=== PATIENT | male | born 1950 | race Caucasian/White ===

== ENCOUNTER 2019-10-22 15:11 | Inpatient (IN) | payer MEDICARE ==
[~2019-10-22] VITALS: Ht 172.7 cm; Wt 116.7 kg
[2019-10-23] MEDS ORDERED: LOPERAMIDE 2 MG (IMODIUM) TABLET PO PRN (06:00)
[2019-10-23] MEDS ORDERED: ALPRAZolam 0.25 MG (XANAX) TAB PO PRN (06:00)
[2019-10-23] MEDS ORDERED: diphenhydrAMINE 25 MG TAB (BENADRYL) PO PRN (06:00)
[2019-10-23] MEDS ORDERED: LACTULOSE SYRUP 10GM/15ML (ENULOSE) 30ML UDC PO PRN (06:00)
[2019-10-23] MEDS ORDERED: CALCIUM CARBONATE 500 MG (TUMS) TAB.CHEW PO PRN (06:00)
[2019-10-23] MEDS ORDERED: ONDANSETRON 4 MG (ZOFRAN) ORAL DISSOLVE TAB PO PRN (06:00)
[2019-10-23] MEDS ORDERED: DOCUSATE SODIUM 100 MG (COLACE) CAP PO PRN (06:00)
[2019-10-23] MEDS ORDERED: BISACODYL 10 MG SUPP (DULCOLAX) PR PRN (06:00)
[2019-10-23] MEDS ORDERED: MELATONIN 3 MG TABLET PO PRN (06:00)
[2019-10-23] MEDS ORDERED: guaiFENesin/CODEINE (ROBITUSSIN AC) 10ML UDC PO PRN (06:00)
[2019-10-23] MEDS ORDERED: ACETAMINOPHEN 500 MG TAB (TYLENOL) PO PRN (06:00)
[2019-10-23] MEDS ORDERED: FLEET ENEMA ADULT 1 EA BTL PR PRN (06:00)
[2019-10-23] MEDS ORDERED: PATIENT MAY USE OWN MED,SINGLE MED PO SCH ×2 (13:15)
[2019-10-23] MEDS ORDERED: oxyCODONE/APAP 10/325MG (PERCOCET 10) TABLET PO PRN (13:15)
--- NOTE | 2019-10-23 15:13 | NUR ---
JimmieRobyn zuniga admitted to room 231-1, with an admitting diagnosis of lumbar stenosis, on 10/23/19 from [facility] in [place] via private vehicle, accompanied by per wheelchair .ROBYN ANDREA introduced to surroundings, call light, bed controls, phone, TV, temperature control, lights, meal times, smoking policy, visitor policy, side rail policy, bathrooms and showers. Patient Rights given to patient in the handbook.ROBYN ANDREA verbalizes understanding that [facility] is not responsible for the loss or damage to any personal effects or valuables that are kept in the patients possessions during their hospitalization. The Patient's Care Plans were discussed with the patient and as well as Discharge Planning. ROBYN ANDREA verbalizes understanding of Interdisciplinary Patient Education. Patient and/or family were informed about the Rapid Response Team and its purpose. Patient received Patient Rights Booklet, which includes Privacy Act Statement and Data Collection Information Summary.
[2019-10-23] MEDS ORDERED: ISOSORBIDE MONONITRATE 30 MG (IMDUR) TAB PO SCH (15:30)
--- NOTE | 2019-10-23 15:59 | PM&R Post Admission Assessment ---
PM&R HP Date of Visit: Oct 23, 2019 Time of Visit: 15:30 History of Present Illness Chief complaint: Debility following lumbar stenosis surgery with slow recovery due to chronic myasthenia gravis condition History of present illness: This is a 69-year-old white male clinic patient of Dr. Richard Guzmán of recent establishment previously Dr. Abel was his primary care provider who has a past medical history of myasthenia gravis in process of establishing with neurology, who he previously saw in [place], who presents to inpatient rehab unit in need of recovery with structured physical therapy in order to return home. He underwent an uncomplicated lumbar spine stenosis surgery by Dr. Colón on , 10/20/2019 and today he just had his DAO drain removed and his bowels are moving well and in need of aggressive therapy in order to prevent falls and return home with his . He does report acute on chronic pain. He does wear a CPAP machine for obstructive sleep apnea and he did bring that with him today. I have reviewed and reconciled all of his home medication and will restart all of them with same doses and frequencies. He is not having any nausea or vomiting and no fevers. His prior level of functioning is the use of a walker but independent with his ADLs. [facility] PCP notes Dr Richard Guzmán: Past Medical History: Arthritis low back CAD (coronary artery disease) GERD (gastroesophageal reflux disease) HTN (hypertension) Hyperlipidemia Kidney calculus MRSA (methicillin resistant staph aureus) culture positive 08/23/2017 right arm abscess Myasthenia gravis Obstructive sleep apnea C-PAP Past Surgical History HX CHOLECYSTECTOMY HX CORONARY ARTERY BYPASS GRAFT triple bypass HX EGDwith dilitation HX HEART CATHETERIZATION 2005 & one time since CABG HX HERNIA REPAIR HX KNEE REPLACEMENT Left PENIS SURGERY-Penile Implant FRAGMENT KIDNEY STONE/ ESWLLeft NV NJX DX/THER SBST EPIDURAL/SUBARACH LUMBAR/SACRAL 11/08/2018 CAUDAL EPIDURAL INJECTION performed by Abel Pulliam MD at [facility] NV REMOVAL OF HYDROCELE,TUNICA,UNILAT Bilateral 08/13/2018 HYDROCELECTOMY performed by Max Sanford MD at [facility] MAIN OR Past Wauivxf-Somovd-Hcgpdz Hx Past Med/Social Hx: Reviewed Nursing Past Med/Soc Hx, Reviewed and Corrections made Patient Social History Marrital Status: Employed/Student: retired ([place] [employer] 10 yrs before retiring) Alcohol Use: Rarely Uses Smoking Status: Never a Smoker Recent Foreign Travel: No Contact w/other who traveled: No Seasonal Allergies Seasonal Allergies: Yes Past Medical History Surgeries: Abdominal, Cardiac, CABG, Coronary Stent, Gallbladder, Orthopedic lumbar spine Dr Colón 10/20/19, hernia, penile implant Respiratory: Sleep Apnea Currently Using CPAP: Yes (.08/27) Currently Using BIPAP: No Cardiac: Coronary Artery Disease, Heart Attack (2005), High Cholesterol, Hypertension Neurological: Dementia, Neuropathy tremor, myasthenia gravis right eye Genitourinary: Benign Prostatic Hyperpl Gastrointestinal: Gastroesophageal Reflux, Chronic Diarrhea Musculoskeletal: Arthritis, Chronic Back Pain, Spasms Psychosocial: Depression PM&R Allergy/Meds/Data Review Allergies Coded Allergies: codeine (Verified Allergy, Unknown, 10/23/19) Current Medications Current Medications Reviewed Review of Systems Constitutional: see HPI, malaise, weakness EENTM: no symptoms reported Respiratory: no symptoms reported Cardiovascular: no symptoms reported Gastrointestinal: no symptoms reported Genitourinary: no symptoms reported Musculoskeletal: back pain, muscle pain, muscle stiffness Skin: no symptoms reported Psychiatric/Neurological: No Symptoms Reported All Other Systems Reviewed Negative Unless Noted: Yes Physical Exam Physical Exam Vital Signs Capillary Refill : Height, Weight, BMI Height: '" Weight: lbs. oz. kg; BMI Method: General Appearance: No Apparent Distress, WD/WN, Chronically ill, Obese Eyes: Bilateral Eye Normal Inspection, Bilateral Eye PERRL HEENT: PERRL/EOMI, Normal ENT Inspection, Pharynx Normal Neck: Full Range of Motion, Normal Inspection, Non Tender, Supple, Carotid Bruit Respiratory: Chest Non Tender, Lungs Clear, Normal Breath Sounds, No Accessory Muscle Use, No Respiratory Distress Cardiovascular: Regular Rate, Rhythm, No Edema, No Gallop, No JVD, No Murmur, Normal Peripheral Pulses Gastrointestinal: Normal Bowel Sounds, No Organomegaly, No Pulsatile Mass, Non Tender, Soft Back: Decreased Range of Motion, Muscle Spasm, Vertebral Tenderness Extremity: Normal Capillary Refill, Normal Inspection, Normal Range of Motion, Non Tender, No Calf Tenderness, No Pedal Edema Neurologic/Psychiatric: Alert, Oriented x3, No Motor/Sensory Deficits, Normal Mood/Affect, hospital pharmacist II-XII Norm as Tested, Abnormal Gait, Depressed Affect, Disoriented (poor recall), Motor Weakness (legs 4/5) Skin: Normal Color, Warm/Dry Lymphatic: No Adenopathy PM&R Medical Assessment & Plan REHAB/MEDICAL ASSESSMENT AND PLAN: REHAB IMPAIRMENT GROUP: Lumbar stenosis surgery with MG ETIOLOGIC DIAGNOSIS: Lumbar stenosis surgery with MG The comorbidities that impact the patients function and/or functional outcome by: obesity, dementia, CAD, poor functioning capacity at baseline, KWAN REHAB PLAN: The patient is being admitted to our comprehensive inpatient rehabilitation facility and can tolerate the intensity of service consisting of at least: 180 minutes of therapy a day, 5 out of 7 days a week Rehab treatment will consist of: PT OT will focus on fall prevention and increasing stamina along with increasing ADL independence with energy conservation education The patient/family has a good understanding of our discharge process and will benefit from an interdisciplinary inpatient rehabilitation program. The patient has potential to make improvement and is in need of at least two of the following multidisciplinary therapies including but not limited to physical, occupational, speech, and prosthetics and orthotics. Additionally the patient will need services from respiratory, nutritional services, wound care, psychology, etc. (Customize this to each patient). Given the patients complex condition and risk of further medical complications, rehabilitation services cannot be safely or effectively provided at a lower level of care such as a [facility]. BARRIERS TO DISCHARGE: Cognitive deficit ESTIMATED LOS: 7 days DISPOSITION: Home RELEVANT CHANGES SINCE PREADMISSION SCREENING: I have compared the patients medical and functional status at the time of the preadmission screening and there are: no changes PROGNOSIS: Good REHABILITATION GOALS: 1. PT OT will focus on fall prevention and increasing stamina along with increasing ADL independence with energy conservation education All the above goals were reviewed with the patient and he/she is in agreement. By signing this document, I acknowledge that I have personally performed a full physical examination on this patient within 24 hours of admission to this inpatient rehabilitation facility and have determined the patient to be able to tolerate the above course of treatment at an intensive level for a reasonable period of time. I will be completing a detailed individualized Plan of Care for this patient by day #4 of the patients stay based upon the Preadmission Screen, the Post-Admission Evaluation, and the therapy evaluations. Admission Dx/Comorbidities: (1) Lumbar stenosis ICD Codes: M48.061 - Spinal stenosis, lumbar region without neurogenic claudication (2) Myasthenia gravis ICD Codes: G70.00 - Myasthenia gravis without (acute) exacerbation (3) KWAN on CPAP ICD Codes: G47.33 - Obstructive sleep apnea (adult) (pediatric); Z99.89 - Dependence on other enabling machines and devices (4) CAD (coronary artery disease) ICD Codes: I25.10 - Atherosclerotic heart disease of [place] coronary artery without angina pectoris (5) S/P CABG x 3 ICD Codes: Z95.1 - Presence of aortocoronary bypass graft (6) Hypertension ICD Codes: I10 - Essential (primary) hypertension (7) Hyperlipemia ICD Codes: E78.5 - Hyperlipidemia, unspecified (8) Obesity ICD Codes: E66.9 - Obesity, unspecified (9) GERD with esophagitis ICD Codes: K21.0 - Gastro-esophageal reflux disease with esophagitis (10) Dementia ICD Codes: F03.90 - Unspecified dementia without behavioral disturbance (11) History of penile implant ICD Codes: Z96.0 - Presence of urogenital implants (12) Renal lithiasis ICD Codes: N20.0 - Calculus of kidney Assessment/Plan Assessment and Plan Assess & Plan/Chief Complaint Assessment: Status post lumbar stenosis surgery POD # 3 Myasthenia gravis Slow recovery KWAN on CPAP Obesity GERD Hypertension Hyperlipidemia CAD Previous CABG 3 vessels Plan: Inpatient rehab protocol Pain control Home meds Fall risk Bowel regimen Monitor closely No Lovenox or aspirin for 7 days MICHEL LOPEZ DO Oct 23, 2019 15:59
[2019-10-23] MEDS: DOCUSATE SODIUM 100 MG (COLACE) CAP PO SCH ×2 (16:44→20:03)
[2019-10-23] MEDS: polyethylene glycoL POWDER 17 GM (MIRALAX) PACK PO SCH ×2 (16:45→20:06)
[2019-10-23 16:46] VITALS: BP 138/77
[2019-10-23] MEDS: HYDROcodone/APAP 7.5 MG/325 MG (LORTAB, LORCET PLUS) TABLET PO PRN (17:09)
[2019-10-23] MEDS: GABAPENTIN 600 MG (NEURONTIN) TAB PO SCH ×2 (17:14→20:03)
[2019-10-23] MEDS: PYRIDOSTIGMINE 60 MG TABLET PO SCH ×2 (17:16→20:04)
[2019-10-23] MEDS: MYCOPHENOLATE 500 MG TABLET PO SCH (17:18)
[2019-10-23 18:48] VITALS: BP 138/77
[2019-10-23] MEDS: SENNA W/DOCUSATE (SENOKOT S) TABLET PO SCH (20:02)
[2019-10-23] MEDS: FENOFIBRATE 134 MG (LOFIBRA) CAPSULE PO SCH (20:03)
[2019-10-23] MEDS: PRIMIDONE 50 MG TAB (MYSOLINE) PO SCH (20:03)
[2019-10-23] MEDS: ISOSORBIDE MONONITRATE 30 MG (IMDUR) TAB PO SCH (20:03)
[2019-10-23] MEDS: DONEPEZIL 10 MG (ARICEPT) TAB PO SCH (20:04)
[2019-10-24] MEDS: HYDROcodone/APAP 7.5 MG/325 MG (LORTAB, LORCET PLUS) TABLET PO PRN ×2 (00:27→06:24)
[2019-10-24 05:30] VITALS: BP 124/64
[2019-10-24 05:31] LABS: BASOPHILS % (AUTO) 1 % (0-10); EOSINOPHILS # (AUTO) 0.2 10^3/uL (0.0-0.3); EOSINOPHILS % (AUTO) 3 % (0-10); HEMATOCRIT 34 % (40-54); HEMOGLOBIN 11.1 G/DL (13.3-17.7); LYMPHOCYTES # (AUTO) 1.3 X 10^3 (1.0-4.0); LYMPHOCYTES % (AUTO) 15 % (12-44); MEAN CORPUSCULAR HEMOGLOBIN 28 PG (25-34); MEAN CORPUSCULAR HGB CONC 33 G/DL (32-36); MEAN CORPUSCULAR VOLUME 87 FL (80-99); MEAN PLATELET VOLUME 9.3 FL (7.4-10.4); MONOCYTES # (AUTO) 1.1 X 10^3 (0.0-1.0); MONOCYTES % (AUTO) 13 % (0-12); NEUTROPHILS # (AUTO) 5.9 X 10^3 (1.8-7.8); NEUTROPHILS % (AUTO) 69 % (42-75); PLATELET COUNT 191 10^3/uL (130-400); RED CELL DISTRIBUTION WIDTH 13.1 % (10.0-14.5); WHITE BLOOD COUNT 8.4 10^3/uL (4.3-11.0)
[2019-10-24 05:47] LABS: ALBUMIN 3.6 GM/DL (3.2-4.5); CHLORIDE 101 MMOL/L (98-107); POTASSIUM 3.9 MMOL/L (3.6-5.0); SODIUM 136 MMOL/L (135-145)
[2019-10-24 05:48] LABS: CALCIUM 8.7 MG/DL (8.5-10.1)
[2019-10-24 05:49] LABS: GLUCOSE 125 MG/DL (70-105)
[2019-10-24 05:50] LABS: TOTAL PROTEIN 6.3 GM/DL (6.4-8.2)
[2019-10-24 05:51] LABS: BILIRUBIN,TOTAL 0.3 MG/DL (0.1-1.0); CARBON DIOXIDE 26 MMOL/L (21-32)
[2019-10-24 05:53] LABS: ALKALINE PHOSPHATASE 43 U/L (40-136); CREATININE SERUM 1.03 MG/DL (0.60-1.30); GFR ESTIMATED > 60
[2019-10-24 05:54] LABS: BUN/CREATININE RATIO 14
[2019-10-24 05:56] LABS: ALANINE AMINOTRANSFERASE 16 U/L (0-55)
[2019-10-24] MEDS: MYCOPHENOLATE 500 MG TABLET PO SCH ×2 (06:23→14:20)
[2019-10-24] MEDS: MULTIVIT W/MINERALS TAB (THERAGRAN M) PO SCH (06:23)
[2019-10-24] MEDS: PYRIDOSTIGMINE 60 MG TABLET PO SCH ×3 (06:27→21:25)
[2019-10-24] MEDS: VITAMIN D3 125 MCG (5,000 UNITS) CAPSULE PO SCH (08:12)
[2019-10-24] MEDS: PANTOPRAZOLE 40 MG (PROTONIX) TAB PO SCH (08:13)
[2019-10-24] MEDS: ASCORBIC ACID (VIT C) 500 MG TABLET PO SCH (08:13)
[2019-10-24] MEDS: LOSARTAN 100 MG (COZAAR) TABLET PO SCH (08:13)
[2019-10-24] MEDS: LORATADINE (CLARITIN) 10 MG TAB PO SCH (08:13)
[2019-10-24] MEDS: GABAPENTIN 600 MG (NEURONTIN) TAB PO SCH ×3 (08:13→21:26)
[2019-10-24] MEDS: SENNA W/DOCUSATE (SENOKOT S) TABLET PO SCH ×2 (08:14→21:26)
[2019-10-24] MEDS: DOCUSATE SODIUM 100 MG (COLACE) CAP PO SCH ×2 (08:14→21:26)
[2019-10-24] MEDS: polyethylene glycoL POWDER 17 GM (MIRALAX) PACK PO SCH ×2 (08:15→21:25)
[2019-10-24] MEDS: FLUTICASONE NASAL SPRAY (FLONASE) 16 GM BTL NS SCH ×2 (08:15→22:01)
[2019-10-24] MEDS: ATENOLOL 50 MG (TENORMIN) TAB PO SCH (08:18)
[2019-10-24 08:19] VITALS: BP 128/65
[2019-10-24] MEDS ORDERED: ISOSORBIDE MONONITRATE 30 MG (IMDUR) TAB PO SCH (09:00)
--- NOTE | 2019-10-24 10:29 | PM&R Progress Note ---
Subjective HPI/CC On Admission Date Seen by Provider: Oct 24, 2019 Time Seen by Provider: 10:20 Subjective/Events-last exam Pain issues are being addressed will add back on to Percocet Still has Hydrocodone as needed but he takes that at home Bowels will be monitored closely for narcotic bowel issue Continue the rest of his home medication No falls Didn't sleep well last light due to the pain Conferred with RN Reviewed therapy notes Checked meds and labs Review of Systems Musculoskeletal: back pain Objective Exam Vital Signs Vital Signs Date Time Temp Pulse Resp B/P (MAP) Pulse Ox O2 Delivery O2 Flow Rate FiO2 10/24/19 20:50 53 18 108/50 (69) 92 Room Air 110/50 (70) 10/24/19 16:00 36.4 Capillary Refill : Less Than 3 Seconds General Appearance: No Apparent Distress, WD/WN, Chronically ill, Obese HEENT: PERRL/EOMI, Normal ENT Inspection, Pharynx Normal Neck: Full Range of Motion, Normal Inspection, Non Tender, Supple, Carotid Bruit Respiratory: Chest Non Tender, Lungs Clear, Normal Breath Sounds, No Accessory Muscle Use, No Respiratory Distress Cardiovascular: Regular Rate, Rhythm, No Edema, No Gallop, No JVD, No Murmur, Normal Peripheral Pulses Gastrointestinal: Normal Bowel Sounds, No Organomegaly, No Pulsatile Mass, Non Tender, Soft Back: Decreased Range of Motion, Muscle Spasm, Vertebral Tenderness Extremity: Normal Capillary Refill, Normal Inspection, Normal Range of Motion, Non Tender, No Calf Tenderness, No Pedal Edema Neurologic/Psychiatric: Alert, Oriented x3, No Motor/Sensory Deficits, Normal Mood/Affect, train reservation clerk II-XII Norm as Tested, Abnormal Gait, Depressed Affect, Disoriented (poor recall), Motor Weakness (legs 4/5) Skin: Normal Color, Warm/Dry Lymphatic: No Adenopathy Results/Procedures Lab Laboratory Tests 10/24/19 05:11 Patient resulted labs reviewed. FIM Transfers Therapy Code Descriptions/Definitions Functional [place] Measure: 0=Not Assessed/NA 4=Minimal Assistance 1=Total Assistance 5=Supervision or Setup 2=Maximal Assistance 6=Modified [place] 3=Moderate Assistance 7=Complete IndependenceSCALE: Activities may be completed with or without assistive devices. 8-Bqtacharhu-egsbrwx completes the activity by him/herself with no assistance from a helper. 5-Set-up or Clean-up Assistance-helper sets up or cleans up; patient completes activity. [place] assists only prior to or following the activity. 4-Supervision or Touching Assistance-helper provides verbal cues and/or touching/steadying and/or contact guard assistance as patient completes activity. Assistance may be provided throughout the activity or intermittently. 3-Partial/Moderate Assistance-helper does LESS THAN HALF the effort. [place] lifts, holds or supports trunk or limbs, but provides less than half the effort. 2-Substantial/Maximal Assistance-helper does MORE THAN HALF the effort. [place] lifts or holds trunk or limbs and provides more than half the effort. 7-Zroiqsydm-nudveb does ALL the effort. Patient does none of the effort to complete the activity. Or, the assistance of 2 or more helpers is required for the patient to complete the activity. If activity was not attempted, code reason: 7-Patient Refused. 9-Not Applicable-not attempted and the patient did not perform the activity before the current illness, exacerbation or injury. 10-Not Attempted due to Environmental Limitations-(lack of equipment, weather restraints, etc.). 88-Not Attempted due to Medical Conditions or Safety Concerns. Assessment/Plan Assessment and Plan Assess & Plan/Chief Complaint Assessment: Status post lumbar stenosis surgery POD # 4 Myasthenia gravis Slow recovery KWAN on CPAP Obesity GERD Hypertension Hyperlipidemia CAD Previous CABG 3 vessels Severe pain Plan: Inpatient rehab protocol Pain control Home meds Fall risk Bowel regimen Monitor closely No Lovenox or aspirin for 7 days Increase pain medication (1) Lumbar stenosis (2) Myasthenia gravis (3) KWAN on CPAP (4) CAD (coronary artery disease) (5) S/P CABG x 3 (6) Hypertension (7) Hyperlipemia (8) Obesity (9) GERD with esophagitis (10) Dementia (11) History of penile implant (12) Renal lithiasis MICHEL LOPEZ DO Oct 24, 2019 10:29
[2019-10-24] MEDS: oxyCODONE/APAP 10/325MG (PERCOCET 10) TABLET PO PRN ×3 (10:39→19:37)
--- NOTE | 2019-10-24 11:48 | Physical Therapy Evaluation ---
PT Evaluation-General Medical Diagnosis Admission Date Oct 23, 2019 at 15:12 Medical Diagnosis: lumbar stenosis surgery Onset Date: Oct 21, 2019 Therapy Diagnosis Therapy Diagnosis: impaired mobility, strength, endurance Precautions Precautions/Isolations: Fall Prevention, Standard Precautions Referral Physician: Gosia Jasso DO Reason for Referral: Evaluation/Treatment Medical History Pertinent Medical History: CAD, GERD, HTN Additional Medical History hyperlipidemia, hx of myasthenia gravis Reviewed History: Yes Social History Home: Single Level Current Living Status: Spouse Entry Into Home: Level Entry Prior Prior Level of Function SCALE: Activities may be completed with or without assistive devices. 9-Mhawyezkmh-xzwrugw completes the activity by him/herself with no assistance from a helper. 5-Set-up or Clean-up Assistance-helper sets up or cleans up; patient completes activity. [place] assists only prior to or following the activity. 4-Supervision or Touching Assistance-helper provides verbal cues and/or touching/steadying and/or contact guard assistance as patient completes activity. Assistance may be provided throughout the activity or intermittently. 3-Partial/Moderate Assistance-helper does LESS THAN HALF the effort. [place] lifts, holds or supports trunk or limbs, but provides less than half the effort. 2-Substantial/Maximal Assistance-helper does MORE THAN HALF the effort. [place] lifts or holds trunk or limbs and provides more than half the effort. 2-Qrmkyqulw-bcsapu does ALL the effort. Patient does none of the effort to complete the activity. Or, the assistance of 2 or more helpers is required for the patient to complete the activity. If activity was not attempted, code reason: 7-Patient Refused. 9-Not Applicable-not attempted and the patient did not perform the activity before the current illness, exacerbation or injury. 10-Not Attempted due to Environmental Limitations-(lack of equipment, weather restraints, etc.). 88-Not Attempted due to Medical Conditions or Safety Concerns. Bed Mobility: 6 Transfers (B,C,W/C): 6 Gait: 6 Indoor Mobility (Ambulation): Independent Patient states that previously he started using a 4-wheeled walker. PT Evaluation-Current Subjective Patient in recliner pre tx, agrees to PT, has 7/10 pain in low back. Pt/Family Goals to be independent at home Objective Patient Orientation: Person, Place, Situation back brace ROM/Strength ROM Lower Extremities WNL Strength Lower Extremities 5/5 gross BLE except for hip flexion which is 3/5 bilaterally Sensory Vision: Functional Hearing: Functional Sensation Right Lower Extremit: Impaired Sensation Left Lower Extremity: Impaired Sensation Lower Extremities Patient has decreased light touch sensation in his feet bilaterally, he says he has neuropathy. Transfers Roll Left to Right (QC): 6 Sit to Lying (QC): 6 Lying to Sitting/Side of Bed(Q: 6 Sit to Stand (QC): 4 Chair/Fdp-ho-Hurdm Xfer(QC): 4 Toilet Transfer (QC): 4 Car Transfer (QC): 4 Patient performs bed mobility with independence, supine <->sit with independence, sit <-> stand with SBA, transfers with SBA, car transfer SBA. Patient performs a log roll well with supine <-> sit. Occasional cues for safety or positioning. Gait Does the Patient Walk?: Yes Mode of Locomotion: Walk Anticipated Mode of Locomotion: Walk Walk 10 feet (QC): 4 Walk 50 ft with 2 Turns(QC): 4 Walk 150 ft (QC): 88 Walking 10ft/uneven surface-QC: 4 Distance: 120', 60'x2 Gait Assistive Device: Walker 4 Wheeled Comments/Gait Description Patient can ambulate 120' with a 4-wheeled walker with SBA (including 50' with at least 2 turns of 90 degrees but needs CGA to ambulate over an uneven surface). He ambulates slow but steady, wide IVA. Slumped posture. Wheelchair Training Does the Pt Use a Wheelchair?: No Wheel 50 ft with 2 turns (QC): 9 Wheel 150 ft (QC): 9 Stairs #of Steps: 1 1 Step (curb) (QC): 4 4 Steps (QC): 88 12 Steps (QC): 88 Walking Assistive Device: Walker Patient can go up and down 1 step using a 4-wheeled walker with CGA. Cues for foot placement. Balance Sitting Static: Normal Sitting Dynamic: Normal Standing Static: Good Standing Dynamic: Good Picking up an Object (QC): 88 Treatment NuStep level 4 for 10 min (patient states it was hurting his legs, we may not do this again). Assessment/Needs Patient has impaired mobility, strength, endurance. He needs assist with don/doff brace. Most mobility is SBA. Rehab Potential: Fair PT Short Term Goals Short Term Goals Time Frame: Oct 31, 2019 Roll Left & Right: 6 Sit to lyin Lying to sitting on side of be: 6 Sit to stand: 5 Chair/pix-pw-jqvau transfer: 5 Walk 10 feet: 5 Walk 50 feet with two turns: 5 Walk 150 feet: 5 PT Dough Panner Goals Dough Panner Goals PT Dough Panner Goals Time Frame: Nov 14, 2019 Roll Left & Right (QC): 6 Sit to Lying (QC): 6 Lying-Sitting on Side/Bed(QC): 6 Sit to Stand (QC): 6 Chair/Tfj-ow-Giprr Xfer(QC): 6 Toilet Transfer (QC): 6 Car Transfer (QC): 6 Does the Patient Walk: Yes Walk 10 feet (QC): 6 Walk 50ft with 2 Turns (QC): 6 Walk 150 ft (QC): 6 Walking 10ft on Uneven Surface: 6 1 Step (curb) (QC): 4 4 Steps (QC): 4 12 Steps (QC): 88 Picking up an Object (QC): 88 Does the Pt use WC or Scooter?: No Wheel 50 feet with 2 turns (QC: 9 Wheel 150 feet: 9 PT Plan Problem List Problem List: Activity Tolerance, Functional Strength, Safety, Balance, Gait, Transfer, Bed Mobility, ROM Treatment/Plan Treatment Plan: Continue Plan of Care Treatment Plan: Bed Mobility, Education, Functional Activity [place], Functional Strength, Group Therapy, Gait, Safety, Therapeutic Exercise, Transfers Treatment Duration: Nov 14, 2019 Frequency: At least 5 of 7 days/Wk (IRF) Estimated Hrs Per Day: 1.5 hours per day Patient and/or Family Agrees t: Yes Safety Risks/Education Patient Education: Gait Training, Transfer Techniques, Steps, Reviewed Precautions, Correct Positioning, Reviewed Don/Doff Brace, Safety Issues Teaching Recipient: Patient Teaching Methods: Demonstration, Discussion Response to Teaching: Reinforcement Needed Discharge Recommendations Plan Patient will perform bed mobility and transfer training, balance and endurance training, functional strengthening, stair training, gait training, and education, to improve functional mobility and independence at home. Therapy Discharge Recommendati: Home & Family Equpiment Recommendations-D/C: Shower Chair, Toilet Riser Time/GCodes Time In: 1100 Time Out: 1200 Total Billed Treatment Time: 60 Total Billed Treatment 1 visit EVM 30' EX 10' GT 20' JOHNSON CRUZ PT Oct 24, 2019 11:48
[2019-10-24] MEDS ORDERED: GBPN600T PO (12:51)
[2019-10-24] MEDS ORDERED: MULT-1136 PO (12:51)
[2019-10-24] MEDS ORDERED: PANT40TA3 PO (12:51)
[2019-10-24] MEDS ORDERED: FENO160T12 PO (12:51)
[2019-10-24] MEDS ORDERED: CETI10TA21 PO (12:51)
[2019-10-24] MEDS ORDERED: PRIM50TA33 PO (12:51)
[2019-10-24] MEDS ORDERED: CHOL20002 PO (12:51)
[2019-10-24] MEDS ORDERED: ATEN50TA PO (12:51)
[2019-10-24] MEDS ORDERED: LOSA100T57 PO (12:51)
[2019-10-24] MEDS ORDERED: FLUT16SP22 NSEACH (12:51)
[2019-10-24] MEDS ORDERED: ASCO-262 PO (12:51)
[2019-10-24] MEDS ORDERED: OXYC-465 PO (12:51)
[2019-10-24] MEDS ORDERED: ISOS30TA3 PO (12:51)
[2019-10-24] MEDS ORDERED: PYRI60TA PO (12:51)
[2019-10-24] MEDS ORDERED: NYST60PO TOP (13:15)
[2019-10-24] MEDS ORDERED: DONE10TA41 PO (13:15)
[2019-10-24] MEDS ORDERED: OMEG-177 PO (13:15)
[2019-10-24] MEDS ORDERED: MYCO500T3 PO (13:15)
[2019-10-24] MEDS ORDERED: TRAZ-227 PO (13:15)
--- NOTE | 2019-10-24 13:18 | NUR ---
ENTERED THE MEDS USING THE DISCHARGE ORDERS FROM [facility]- THERE WERE SOME MAINTENANCE MEDICATIONS THAT WERE NOT LISTED ON THE DISCHARGE ORDERS (NOT ON THE CONTINUE, CHANGE OR DISCONTINUE) AND I SPOKE WITH THE PT AND HE SAID THAT YES HE WAS TAKING PRIOR TO HIS SURGERY THE MEDICATIONS ARE: TRAZODONE 100MG AND NYSTOP POWDER Addendum: 10/27/19 at 1046 by LAN BERNARD CPhT OTC MEDS: VIT C ZYRTEC VIT D MTV FISH OIL
--- NOTE | 2019-10-24 14:23 | Physical Therapy Daily Note ---
PT Daily Note-Current Subjective Patient in recliner pre tx, agrees to PT, has 6/10 back pain, nurse notified. Appearance Patient in bed post tx with nurse call, phone, tray, all needs met. Mental Status Patient Orientation: Person, Place, Situation back brace Transfers SCALE: Activities may be completed with or without assistive devices. 2-Lqsmsktuqa-gyjgyfn completes the activity by him/herself with no assistance from a helper. 5-Set-up or Clean-up Assistance-helper sets up or cleans up; patient completes activity. [place] assists only prior to or following the activity. 4-Supervision or Touching Assistance-helper provides verbal cues and/or touching/steadying and/or contact guard assistance as patient completes activity. Assistance may be provided throughout the activity or intermittently. 3-Partial/Moderate Assistance-helper does LESS THAN HALF the effort. [place] lifts, holds or supports trunk or limbs, but provides less than half the effort. 2-Substantial/Maximal Assistance-helper does MORE THAN HALF the effort. [place] lifts or holds trunk or limbs and provides more than half the effort. 0-Iqexntsty-kipvmz does ALL the effort. Patient does none of the effort to complete the activity. Or, the assistance of 2 or more helpers is required for the patient to complete the activity. If activity was not attempted, code reason: 7-Patient Refused. 9-Not Applicable-not attempted and the patient did not perform the activity before the current illness, exacerbation or injury. 10-Not Attempted due to Environmental Limitations-(lack of equipment, weather restraints, etc.). 88-Not Attempted due to Medical Conditions or Safety Concerns. Roll Left & Right (QC): 6 Sit to Lying (QC): 6 Sit to Stand (QC): 4 Chair/Nlg-yk-Xzpbe Xfer(QC): 4 Gait Training Distance: 120'x2 Walk 10 feet (QC): 4 Walk 50 ft with 2 Turns(QC): 4 Gait Persons Needed: 1 Gait Assistive Device: FWW slow but steady ambulation Exercises Standing: Hip Abduction, Heel/toe raises, Mini squats Standing Reps: 20 LAQ alternating for 5 min with 2# ankle weights Treatments bed mobility and transfers, ambulation, functional strengthening Assessment Current Status: Fair Progress improving endurance PT Short Term Goals Short Term Goals Time Frame: Oct 31, 2019 Roll Left & Right: 6 Sit to lyin Lying to sitting on side of be: 6 Sit to stand: 5 Chair/hne-wz-erlys transfer: 5 Walk 10 feet: 5 Walk 50 feet with two turns: 5 Walk 150 feet: 5 PT Internal Consultant Goals Senior Care Goals PT Senior Care Goals Time Frame: Nov 14, 2019 Roll Left & Right (QC): 6 Sit to Lying (QC): 6 Lying-Sitting on Side/Bed(QC): 6 Sit to Stand (QC): 6 Chair/Taa-ex-Adfry Xfer(QC): 6 Toilet Transfer (QC): 6 Car Transfer (QC): 6 Does the Patient Walk: Yes Walk 10 feet (QC): 6 Walk 50ft with 2 Turns (QC): 6 Walk 150 ft (QC): 6 Walking 10ft on Uneven Surface: 6 1 Step (curb) (QC): 4 4 Steps (QC): 4 12 Steps (QC): 88 Picking up an Object (QC): 88 Does the Pt use WC or Scooter?: No Wheel 50 feet with 2 turns (QC: 9 Wheel 150 feet: 9 PT Plan Problem List Problem List: Activity Tolerance, Functional Strength, Safety, Balance, Gait, Transfer, Bed Mobility, ROM Treatment/Plan Treatment Plan: Continue Plan of Care Treatment Plan: Bed Mobility, Education, Functional Activity [place], Functional Strength, Group Therapy, Gait, Safety, Therapeutic Exercise, Transfers Treatment Duration: Nov 14, 2019 Frequency: At least 5 of 7 days/Wk (IRF) Estimated Hrs Per Day: 1.5 hours per day Patient and/or Family Agrees t: Yes Safety Risks/Education Patient Education: Gait Training, Transfer Techniques, Correct Positioning, Reviewed Don/Doff Brace, Safety Issues Teaching Recipient: Patient Teaching Methods: Demonstration, Discussion Response to Teaching: Reinforcement Needed Time/GCodes Time In: 1400 Time Out: 1430 Total Billed Treatment Time: 30 Total Billed Treatment 1 visit EX 10' GT 20' JOHNSON CRUZ PT Oct 24, 2019 14:23
--- NOTE | 2019-10-24 14:54 | NUR ---
"RD ASSESSMENT PMHx: CAD; GERD; HTN; HLD; BPH; myasthenia; chronic diarrhea PT INTERACTION: Pt was awake and pleasant during nutrition assessment. Pt states current appetite is pretty good. Note avg PO intake 88% x2meal, per chart review. Pt states following a regular diet at home, and has no issues with chewing/swallowing food. Pt states no recent issues with nausea or vomiting. Pt states some recent issues with constipation and diarrhea, and that his last BM was 7/6. Pt states no recent wt changes. Note unable to determine recent wt hx, per chart review. ABNORMAL NUTRITION-RELATED LAB VALUES LOW: Pro 6.3 HIGH: glu 125 Est. kcal needs: 5538-3811 kcal | 15-18 kcal/kg Est. Pro needs: 91-114 g Pro | 0.8-1.0 g Pro/kg PES STATEMENT: Given current PO intake, no nutrition diagnosis at this time (NO-1.1) INTERVENTION: Continue with current diet order of Regular diet. Will continue to follow and reassess as pt needs, intake, and status change. MONITOR/EVALUATE: PO Intake; Plan of Care; Hydration Status; Weight Status; Lab Values Shanika Santana, MS, RD, LD"
--- NOTE | 2019-10-24 15:00 | Progress Note ---
JESÚS LUJAN MED STUDENT 10/24/19 1459: Progress Note Mr. Charanjit Schmitz is being seen due to, and has a history of myasthenia gravis in his R eye. He reports being diagnosed in 2014 after having difficulty seeing while driving at night, and noticing his R eyelid drooping. He also reports having issues with fatigue and balance, he would stumble frequently while walking. He was referred to a neurologist by an wire chief, who made the diagnosis and placed him on pyridostigmine, which improved his symptoms. After pyridostigmine stopped working he was switched to steroids, but stopped them due to adverse effects. He is currently on pyridostigmine and mycophenolate mofetil, which he reports controls his symptoms well as long as he takes them at the proper time, if he is late with a dose he may experience drooping of his R eyelid. On physical exam, EOMI/PERRLA, CN VII intact showing no weakness or asymmetry, able to turn his head and shrug shoulders against resistance with 5+ strength. 5+ muscle strength in shoulder abduction, elbow flexion/extension, wrist flexion/extension, hip flexion/extension, knee flexion/extension, ankle flexion/extension bilaterally. GOSIA LOPEZ DO 10/24/19 2201: Supervisory-Addendum Brief Verification & Attestation Participated in pt care: history, MDM, physical Personally performed: exam, history, MDM, supervision of care Care discussed with: Medical Student Procedures: n/a Results interpretation: Verified all documentation Verification and Attestation of Medical Student E/M Service A medical student performed and documented this service in my presence. I reviewed and verified all information documented by the medical student and made modifications to such information, when appropriate. I personally performed the physical exam and medical decision making. Gosia Lopez, Oct 24, 2019,22:01 JESÚS LUJAN MED STUDENT Oct 24, 2019 14:59 GOSIA LOPEZ DO Oct 24, 2019 22:01
--- NOTE | 2019-10-24 15:40 | Occupational Therapy Eval ---
OT Evaluation-General/PLF Medical Diagnosis Admission Date Oct 23, 2019 at 15:12 Medical Diagnosis: lumbar stenosis surgery Onset Date: Oct 21, 2019 Therapy Diagnosis Therapy Diagnosis: Weakness, decreased ADL skills Precautions Precautions/Isolations: Fall Prevention, Standard Precautions Weight Bear Status Back precautions and pt. to have back brace on when up OOB. Referral Physician: Gosia Jasso DO Referral Reason: Activity Tolerance, Self Care, Evaluation/Treatment, Strengthening/ROM Medical History Pertinent Medical History: Arthritis, CABG, CAD, Dementia, GERD, HTN Additional Medical History Myasthenia gravis, neuro tremor, hyperlipidemia, left knee replacement. Current History Pt. had lumbar surgery for lumbar stenosis on 10/20/19. Transferred to rehab unit for strengthening. Reviewed History: Yes Social History Home: Single Level Current Living Status: Spouse Entry Into Home: Level Entry ADL-Prior Level of Function SCALE: Activities may be completed with or without assistive devices. 6-Qksmwgqtnx-nbeukhg completes the activity by him/herself with no assistance from a helper. 5-Set-up or Clean-up Assistance-helper sets up or cleans up; patient completes activity. [place] assists only prior to or following the activity. 4-Supervision or Touching Assistance-helper provides verbal cues and/or touching/steadying and/or contact guard assistance as patient completes activity. Assistance may be provided throughout the activity or intermittently. 3-Partial/Moderate Assistance-helper does LESS THAN HALF the effort. [place] lifts, holds or supports trunk or limbs, but provides less than half the effort. 2-Substantial/Maximal Assistance-helper does MORE THAN HALF the effort. [place] lifts or holds trunk or limbs and provides more than half the effort. 4-Dcnscvzoj-fwpcki does ALL the effort. Patient does none of the effort to complete the activity. Or, the assistance of 2 or more helpers is required for the patient to complete the activity. If activity was not attempted, code reason: 7-Patient Refused. 9-Not Applicable-not attempted and the patient did not perform the activity before the current illness, exacerbation or injury. 10-Not Attempted due to Environmental Limitations-(lack of equipment, weather restraints, etc.). 88-Not Attempted due to Medical Conditions or Safety Concerns. 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 Pt. reports he is normally independent with daily skills, but occasionally seeks assistance for LE dressing from spouse. Self Care: Needed Some Help Functional Cognition: Independent DME/Equipment: Bath Chair, Shower DME/Equipment Comments Pt. has 4 wheeled walker that he has been using since early September. Drive Self: Yes OT Current Status Subjective Pt. reports 7/10 back pain. Nursing administers pain medication. Mental Status/Objective Patient Orientation: Person, Place, Time, Situation Current Upper Extremity ROM Pt. has limited ROM in right shoulder due to arthritis. Pt. is able to flex shoulder to approximately 60 degrees. Left- WFL Upper Extremity Strength NT due to back safety. ADL-Treatment Eating (QC): 6 (Reported by pt.) Oral Hygiene (QC): 4 (Pt. already completed per pt.) Shower/Bathe Self (QC): 4 (SBA/CGA in shower. Pt. able to bring bilateral feet up to him to wash, but this was difficult. Pt. able to wash dustin area in stance, but had difficulty as well as he strains to do so.) Upper Body Dressing (QC): 4 Lower Body Dressing (QC): 3 (Mod assist overall to don underwear and pants over feet. Pt. able to don over hips once he was standing.) On/Off Footwear (QC): 2 Toileting Hygiene (QC): 4 (CGA in stance to urinate.) Other Treatments Pt. agrees to shower this a.m. Pt. requires CGA/SBA with all transfers. Pt. requires min assist overall to don back brace. Pt. educated to not hold his breathe during movement. Pt. up in chair after treatment with all needs met. Education OT Patient Education: Correct positioning, Modified ADL techniques, Progress toward Goal/Update tx plan, Purpose of tx/functional activities, Reviewed precautions, Rehab process, Transfer techniques Teaching Recipient: Patient Teaching Methods: Demonstration, Discussion Response to Teaching: Verbalize Understanding, Return Demonstration OT Short Term Goals Short Term Goals Time Frame: Oct 31, 2019 Eatin Oral hygiene: 6 Toileting hygiene: 5 Shower/bathe self: 4 Upper body dressin Lower body dressin Putting on/taking off footwear: 4 OT Longterm Goals Medical Technician Goals Time Frame: Nov 07, 2019 Eating (QC): 6 Oral Hygiene (QC): 6 Toileting Hygiene (QC): 6 Shower/Bathe Self (QC): 5 Upper Body Dressing (QC): 6 Lower Body Dressing (QC): 6 On/Off Footwear (QC): 6 Additional Goals: 1-Demonstrate ADL Tasks, 2-Verbalize Understanding, 3- ImproveStrength/[place] 1=Demonstrate adherence to instructed precautions during ADL tasks. 2=Patient will verbalize/demonstrate understanding of assistive devices/modifications for ADL. 3=Patient will improve strength/tolerance for activity to enable patient to perform ADL's. OT Education/Plan Problem List/Assessment Assessment: Decreased Activ Tolerance, Dependent Transfers, Impaired Bed Mobility, Impaired Funct Balance, Impaired I ADL's, Impaired Self-Care Skills, Restricted Funct UE ROM Discharge Recommendations Plan/Recommendations: Continue POC Therapy Discharge Recommendati: Home & Family, Post Acute OT Equpiment Recommendations-D/C: Hip Kit Patient/Family Goals To return home with spouse assist. Treatment Plan/Plan of Care Treatment,Training & Education: Yes Patient would benefit from OT for education, treatment and training to promote independence in ADL's, mobility, safety and/or upper extremity function for ADL's. Plan of Care: ADL Retraining, Functional Mobility, Group Exercise/Act as Ind, UE Funct Exercise/Act Treatment Duration: Nov 07, 2019 Frequency: At least 5 of 7 days/Wk (IRF) Estimated Hrs Per Day: 1.5 hours per day Agreement: Yes Rehab Potential: Good Time/GCodes Start Time: 10:00 Stop Time: 11:00 Total Time Billed (hr/min): 60 Billed Treatment Time 1, EVM x 15minutes, ADL x 45minutes INDER BARROW OT Oct 24, 2019 15:40
--- NOTE | 2019-10-24 15:52 | Occupational Ther Daily Note ---
OT Current Status-Daily Note Subjective Pt. reports pain in back but does not state pain level. It is not time for pain medication yet. Pt. repositioned to assist with comfort. Appearance Pt. is up in chair. Requests to use toilet. Mental Status/Objective Patient Orientation: Person, Place, Time, Situation ADL-Treatment Therapy Code Descriptions/Definitions Functional [place] Measure: 0=Not Assessed/NA 4=Minimal Assistance 1=Total Assistance 5=Supervision or Setup 2=Maximal Assistance 6=Modified [place] 3=Moderate Assistance 7=Complete IndependenceSCALE: Activities may be completed with or without assistive devices. 9-Ifmkuuzrqi-yjpbzxz completes the activity by him/herself with no assistance from a helper. 5-Set-up or Clean-up Assistance-helper sets up or cleans up; patient completes activity. [place] assists only prior to or following the activity. 4-Supervision or Touching Assistance-helper provides verbal cues and/or touching/steadying and/or contact guard assistance as patient completes activity. Assistance may be provided throughout the activity or intermittently. 3-Partial/Moderate Assistance-helper does LESS THAN HALF the effort. [place] lifts, holds or supports trunk or limbs, but provides less than half the effort. 2-Substantial/Maximal Assistance-helper does MORE THAN HALF the effort. [place] lifts or holds trunk or limbs and provides more than half the effort. 3-Fdcvdaipt-awnfat does ALL the effort. Patient does none of the effort to complete the activity. Or, the assistance of 2 or more helpers is required for the patient to complete the activity. If activity was not attempted, code reason: 7-Patient Refused. 9-Not Applicable-not attempted and the patient did not perform the activity before the current illness, exacerbation or injury. 10-Not Attempted due to Environmental Limitations-(lack of equipment, weather restraints, etc.). 88-Not Attempted due to Medical Conditions or Safety Concerns. On/Off Footwear: 3 (Mod assist overall with use of AE.) Toileting Hygiene (QC): 4 (SBA) Toilet Transfer (QC): 3 (Min assist) Pt. donned back brace with min assist and stood at walker with min assist to ambulate to toilet. Declines toilet riser. Transferred to toilet with min assist. Pt. able to clean self after BM. Stood with SBA and ambulated to sink to wash hands. Pt. ambulated back to chair. OT issued adaptive equipment for dressing/bathing. Pt. educated in equipment uses, and practiced doffing/donning slipper socks with AE. Pt. able to complete with mod assist overall. Educated for back safety provided. All needs met up in chair. Education OT Patient Education: Correct positioning, Modified ADL techniques, Progress toward Goal/Update tx plan, Purpose of tx/functional activities, Reviewed precautions, Rehab process, Transfer techniques Teaching Recipient: Patient Teaching Methods: Demonstration, Discussion Response to Teaching: Verbalize Understanding, Return Demonstration OT Short Term Goals Short Term Goals Time Frame: Oct 31, 2019 Eatin Oral hygiene: 6 Toileting hygiene: 5 Shower/bathe self: 4 Upper body dressin Lower body dressin Putting on/taking off footwear: 4 OT Machine Puller And Laster Goals [facility] Goals Time Frame: Nov 07, 2019 Eating (QC): 6 Oral Hygiene (QC): 6 Toileting Hygiene (QC): 6 Shower/Bathe Self (QC): 5 Upper Body Dressing (QC): 6 Lower Body Dressing (QC): 6 On/Off Footwear (QC): 6 Additional Goals: 1-Demonstrate ADL Tasks, 2-Verbalize Understanding, 3- ImproveStrength/[place] 1=Demonstrate adherence to instructed precautions during ADL tasks. 2=Patient will verbalize/demonstrate understanding of assistive devices/modifications for ADL. 3=Patient will improve strength/tolerance for activity to enable patient to perform ADL's. OT Education/Plan Problem List/Assessment Assessment: Decreased Activ Tolerance, Dependent Transfers, Impaired I ADL's, Impaired Self-Care Skills Discharge Recommendations Plan/Recommendations: Continue POC Therapy Discharge Recommendati: Home & Family, Post Acute OT Equpiment Recommendations-D/C: Hip Kit Treatment Plan/Plan of Care Treatment,Training & Education: Yes Patient would benefit from OT for education, treatment and training to promote independence in ADL's, mobility, safety and/or upper extremity function for ADL's. Plan of Care: ADL Retraining, Functional Mobility, Group Exercise/Act as Ind, UE Funct Exercise/Act Treatment Duration: Nov 07, 2019 Frequency: At least 5 of 7 days/Wk (IRF) Estimated Hrs Per Day: 1.5 hours per day Agreement: Yes Rehab Potential: Good Time/GCodes Start Time: 13:30 Stop Time: 14:00 Total Time Billed (hr/min): 30 Billed Treatment Time 1, ADL x 2 INDER BARROW OT Oct 24, 2019 15:52
[2019-10-24 16:00] VITALS: BP 127/67
--- NOTE | 2019-10-24 17:42 | NUR ---
DRESSING CHANGE TO BACK INCISION. INCISION IS WELL APPROXIMATED WITH SHAY INTACT. CLEANSED WITH ALCOHOL PADS. COVERED WITH [place] DRESSING. SCANT DRAINAGE NOTED.
[2019-10-24 20:50] VITALS: BP_SYST 108; BP_SYST 110; BP_DIAS 50
[2019-10-24] MEDS: ISOSORBIDE MONONITRATE 30 MG (IMDUR) TAB PO SCH (21:00)
[2019-10-24] MEDS: FENOFIBRATE 134 MG (LOFIBRA) CAPSULE PO SCH (21:25)
[2019-10-24] MEDS: DONEPEZIL 10 MG (ARICEPT) TAB PO SCH (21:26)
[2019-10-24] MEDS: PRIMIDONE 50 MG TAB (MYSOLINE) PO SCH (21:28)
--- NOTE | 2019-10-24 21:30 | Individualized Plan of Care ---
Individualized Plan of Care Rehab Nursing IPOC Order Admission Date Oct 23, 2019 at 15:12 Current Orders Orders Admission Order(Inpt,Obs,Sdc) (10/23/19 05:53) Vital Signs: Per Unit Policy ( 08,16,00 (10/23/19 05:53) Romain Mckenna 09,21 (10/23/19 05:53) Sequential Compression Device Q4H (10/23/19 05:53) Medical Staff Assistant-Inpt Rehab Con (10/23/19 05:53) Rehab Nursing Orders-Ipoc (10/23/19 05:53) Physical Therapy Rehab Orders (10/23/19 05:53) Occupational Therapy Rehab Ord (10/23/19 05:53) Speech Therapy Rehab Orders (10/23/19 05:53) Cbc With Automated Diff (10/24/19 06:00) Comprehensive Metabolic Panel (10/24/19 06:00) General/Regular (10/23/19 Breakfast) Intake & Output 06,14,22 (10/23/19 05:53) Precautions (Aru) (10/23/19 05:53) Weekly Weight WEEK (10/23/19 05:53) Rehab-Intensity Of Therapy (10/23/19 05:53) Initiate Admission Nursing Pro .admission (10/23/19 05:53) Acetaminophen Tablet (Tylenol Tablet) (10/23/19 06:00) Alprazolam Tablet (Xanax Tablet) (10/23/19 06:00) Calcium Carbonate Chew Tablet (Antacid C (10/23/19 06:00) Diphenhydramine Tablet (Benadryl Tablet) (10/23/19 06:00) Docusate Sodium Capsule (Colace Capsule) (10/23/19 09:00) Docusate Sodium Capsule (Colace Capsule) (10/23/19 06:00) Bisacodyl Suppository (Dulcolax Supposit (10/23/19 06:00) Lactulose Oral Solution (Enulose Oral So (10/23/19 06:00) Na Phos/Na Biphos Enema (Fleet Enema Rufino (10/23/19 06:00) Guaifenesin/Codeine Syrup (Robitussin Ac (10/23/19 06:00) Loperamide Tablet (Imodium Tablet) (10/23/19 06:00) Melatonin Tablet (Melatonin Tablet) (10/23/19 06:00) Polyethylene Glycol Powder Pkt (Miralax (10/23/19 09:00) Ondansetron Oral Dissolve Tab (Zofran (10/23/19 06:00) Senna S Tablet (Senokot S Tablet) (10/23/19 21:00) Code/Resuscitation (10/23/19 05:53) Atenolol Tablet (Tenormin Tablet) (10/24/19 09:00) Donepezil Tablet (Aricept Tablet) (10/23/19 21:00) Fenofibrate,Micronized Capsule (Lofibra (10/23/19 21:00) Fluticasone Nasal [place] (Flonase Nasal S (10/24/19 09:00) Gabapentin Capsule/Tablet (Neurontin Cap (10/23/19 17:00) Hydrocodone/Apap 7.5/325 Tab (Lortab 7. (10/23/19 13:15) Isosorbide Mononitrate Tablet (Imdur Tab (10/24/19 09:00) Losartan Tablet (Cozaar Tablet) (10/24/19 09:00) Therapeutic Multivitamin Tab (Vitamins, (10/24/19 07:00) Patient May Use Own Med,Single (Patient (10/23/19 13:15) Oxycodone/Acet 10/325mg Tablet (Percocet (10/23/19 13:15) Pantoprazole Tablet (Protonix Tablet) (10/24/19 09:00) Primidone Tablet (Mysoline Tablet) (10/23/19 21:00) Patient May Use Own Med,Single (Patient (10/23/19 13:15) Ascorbic Acid Tablet (Vitamin C Tablet) (10/24/19 08:00) Cholecalciferol Capsule/Tablet (Vitamin (10/24/19 09:00) Loratadine Tablet (Claritin Tablet) (10/24/19 09:00) Admission Arrival Bed Request (10/23/19 15:13) Isosorbide Mononitrate Tablet (Imdur Tab (10/23/19 15:30) Patient May Use Own Med,Single (Patient (10/23/19 17:00) Patient May Use Own Med,Single (Patient (10/23/19 17:00) Vte Contraindication (10/23/19 16:28) Isosorbide Mononitrate Tablet (Imdur Tab (10/23/19 21:00) Nursing Communication (Order) (10/23/19 18:22) Ambulate 08,12,20 (10/23/19 18:54) Sequential Compression Device Q4H (10/23/19 18:54) Dvt/Vte Risk - Notifiy Physici Q4H (10/23/19 18:54) Oxycodone/Acet 10/325mg Tablet (Percocet (10/24/19 10:00) Patient Visit (10/24/19 ) Pt Eval Moderate Complexity (10/24/19 ) Exercise Therap, Ea 15 Min (10/24/19 ) Gait Training, Ea 15 Min (10/24/19 ) Rehab Nursing Orders: Ongoing Assess. of Function Status, Bladder Management, Bladder Scan, Bladder Training, Bowel Management, Bowel Training, Disease Management & Educaiton, DVT Prophylaxis, Fall Prevention, Fluid/Electrolyte/Nutrition Mgmt, Infection Prevention, Medication Management & Education, Management of Risks & Complications, Management of Skin Intergrity, Nutrition Management, Pain Management, Patient/Family Support, Safety Management, Swallow Precautions Intensity of Therapy to be met Patient to be seen: Min.3h per day/5 of 7d PT IPOC Problem List: Activity Tolerance, Functional Strength, Safety, Balance, Gait, Transfer, Bed Mobility, ROM Treatment Plan: Continue Plan of Care Bed Mobility, Education, Functional Activity [place], Functional Strength, Group Therapy, Gait, Safety, Therapeutic Exercise, Transfers Treatment Duration: Nov 14, 2019 Frequency: At least 5 of 7 days/Wk (IRF) Estimated Hrs Per Day: 1.5 hours per day OT IPOC Problems: Decreased Activ Tolerance, Dependent Transfers, Impaired I ADL's, Impaired Self-Care Skills OT Treatment, Training and Edu: Yes Plan of Care: ADL Retraining, Functional Mobility, Group Exercise/Act as Ind, UE Funct Exercise/Act Treatment Duration: Nov 07, 2019 Frequency: At least 5 of 7 days/Wk (IRF) Estimated Hrs Per Day: 1.[address] IPOC Speech Therapy Treatment Plan: Continue Plan of Care Treatment Duration: Oct 24, 2019 Frequency: Modified Program (IRF) Estimated Hrs Per Day: Other Medical Staff Assistant/Case Mgmt Medical Staff Assistant/Case Managemen: Discharge Planning Dietitian/Oracle Database Developer Dietitian/Oracle Database Developer to monitor nutritional status and make changes and/or recommendations as needed and work with speech pathology on dietary upgrades as the occur. Physician IPOC Medical Issues being managed closely and that require the 24 hour availability of a physician: Recent extensive spine surgery with dementia and MG in need of close monitoring to prevent decompensation Medical Issues: Bowel/Bladder Function, DVT Prophylaxis, Falls Precautions, Fluid/Electrolyte/Nutrition Balance, Infection Protection, Pain Management Brief Synthesis of Preadmission Screen, Post-Admission Evaluation, and Therapy Evaluations: PT OT will focus on regaining ADL independence and gain strength in order to return home to and ST will focus on cognition. Medical Prognosis: Good Anticipated Length of Stay: 7 days MICHEL LOPEZ DO Oct 24, 2019 21:30
[2019-10-25] MEDS: oxyCODONE/APAP 10/325MG (PERCOCET 10) TABLET PO PRN ×2 (01:03→08:11)
[2019-10-25] MEDS: MYCOPHENOLATE 500 MG TABLET PO SCH (05:31)
[2019-10-25] MEDS: MULTIVIT W/MINERALS TAB (THERAGRAN M) PO SCH (05:31)
[2019-10-25 06:15] VITALS: BP 157/67
[2019-10-25] MEDS: VITAMIN D3 125 MCG (5,000 UNITS) CAPSULE PO SCH (08:59)
[2019-10-25] MEDS: SENNA W/DOCUSATE (SENOKOT S) TABLET PO SCH ×2 (08:59→20:52)
[2019-10-25] MEDS: LOSARTAN 100 MG (COZAAR) TABLET PO SCH (08:59)
--- NOTE | 2019-10-25 08:59 | Physical Therapy Daily Note ---
PT Daily Note-Current Subjective Patient in bed pre tx, agrees reluctantly to PT but initially refuses to participate until he has had pain meds, has 6-7/10 pain in back, nurse notified and he got pain meds. Appearance Patient in recliner post tx with nurse call, phone, tray, all needs met. Mental Status Patient Orientation: Person, Place, Situation back brace Transfers SCALE: Activities may be completed with or without assistive devices. 3-Hwszsxycck-xjtwfod completes the activity by him/herself with no assistance from a helper. 5-Set-up or Clean-up Assistance-helper sets up or cleans up; patient completes activity. [place] assists only prior to or following the activity. 4-Supervision or Touching Assistance-helper provides verbal cues and/or touching/steadying and/or contact guard assistance as patient completes activity. Assistance may be provided throughout the activity or intermittently. 3-Partial/Moderate Assistance-helper does LESS THAN HALF the effort. [place] lifts, holds or supports trunk or limbs, but provides less than half the effort. 2-Substantial/Maximal Assistance-helper does MORE THAN HALF the effort. [place] lifts or holds trunk or limbs and provides more than half the effort. 8-Xwcpvuuvs-hnrqjw does ALL the effort. Patient does none of the effort to complete the activity. Or, the assistance of 2 or more helpers is required for the patient to complete the activity. If activity was not attempted, code reason: 7-Patient Refused. 9-Not Applicable-not attempted and the patient did not perform the activity before the current illness, exacerbation or injury. 10-Not Attempted due to Environmental Limitations-(lack of equipment, weather restraints, etc.). 88-Not Attempted due to Medical Conditions or Safety Concerns. Roll Left & Right (QC): 6 Lying to Sitting/Side of Bed(Q: 6 Sit to Stand (QC): 4 Chair/Mvo-mw-Lwnzc Xfer(QC): 4 Gait Training Distance: 150', 120', 150' Walk 10 feet (QC): 4 Walk 50 ft with 2 Turns(QC): 4 Walk 150 ft (QC): 4 Gait Persons Needed: 1 Gait Assistive Device: Walker 4 Wheeled slow but steady ambulation, antalgic, slumped posture Exercises Seated Therapy Exercises: Ankle pumps, Hip flexion, Hip abd/add (with pillow and RTB) Seated Reps: 20 Standing: Hip Abduction, Hamstring curls, Heel/toe raises, Mini squats, Step- ups (x10 each side) Standing Reps: 15 LAQ alternating for 5 min with 2# ankle weights Treatments bed mobility and transfers, ambulation, functional strengthening Assessment Current Status: Fair Progress improving endurance PT Short Term Goals Short Term Goals Time Frame: Oct 31, 2019 Roll Left & Right: 6 Sit to lyin Lying to sitting on side of be: 6 Sit to stand: 5 Chair/zae-fw-zhlnx transfer: 5 Walk 10 feet: 5 Walk 50 feet with two turns: 5 Walk 150 feet: 5 PT Intermediate Goals Game Programmer Goals PT Intermediate Goals Time Frame: Nov 14, 2019 Roll Left & Right (QC): 6 Sit to Lying (QC): 6 Lying-Sitting on Side/Bed(QC): 6 Sit to Stand (QC): 6 Chair/Vni-dq-Demlu Xfer(QC): 6 Toilet Transfer (QC): 6 Car Transfer (QC): 6 Does the Patient Walk: Yes Walk 10 feet (QC): 6 Walk 50ft with 2 Turns (QC): 6 Walk 150 ft (QC): 6 Walking 10ft on Uneven Surface: 6 1 Step (curb) (QC): 4 4 Steps (QC): 4 12 Steps (QC): 88 Picking up an Object (QC): 88 Does the Pt use WC or Scooter?: No Wheel 50 feet with 2 turns (QC: 9 Wheel 150 feet: 9 PT Plan Problem List Problem List: Activity Tolerance, Functional Strength, Safety, Balance, Gait, Transfer, Bed Mobility, ROM Treatment/Plan Treatment Plan: Continue Plan of Care Treatment Plan: Bed Mobility, Education, Functional Activity [place], Functional Strength, Group Therapy, Gait, Safety, Therapeutic Exercise, Transfers Treatment Duration: Nov 14, 2019 Frequency: At least 5 of 7 days/Wk (IRF) Estimated Hrs Per Day: 1.5 hours per day Patient and/or Family Agrees t: Yes Safety Risks/Education Patient Education: Gait Training, Transfer Techniques, Correct Positioning, Reviewed Don/Doff Brace, Safety Issues Teaching Recipient: Patient Teaching Methods: Demonstration, Discussion Response to Teaching: Reinforcement Needed Time/GCodes Time In: 0800 Time Out: 0900 Total Billed Treatment Time: 60 Total Billed Treatment 1 visit GT 30' EX 30' KRTEK,JOHNSON PT Oct 25, 2019 08:59
[2019-10-25] MEDS: DOCUSATE SODIUM 100 MG (COLACE) CAP PO SCH ×2 (09:00→20:52)
[2019-10-25] MEDS: LORATADINE (CLARITIN) 10 MG TAB PO SCH (09:03)
[2019-10-25] MEDS: GABAPENTIN 600 MG (NEURONTIN) TAB PO SCH ×3 (09:03→20:46)
[2019-10-25] MEDS: ATENOLOL 50 MG (TENORMIN) TAB PO SCH (09:03)
[2019-10-25] MEDS: PANTOPRAZOLE 40 MG (PROTONIX) TAB PO SCH (09:03)
[2019-10-25] MEDS: ASCORBIC ACID (VIT C) 500 MG TABLET PO SCH (09:03)
[2019-10-25] MEDS: polyethylene glycoL POWDER 17 GM (MIRALAX) PACK PO SCH ×2 (09:04→20:52)
[2019-10-25] MEDS: PYRIDOSTIGMINE 60 MG TABLET PO SCH ×3 (09:04→20:46)
--- NOTE | 2019-10-25 09:14 | PM&R Progress Note ---
Subjective HPI/CC On Admission Date Seen by Provider: Oct 25, 2019 Time Seen by Provider: 09:15 Subjective/Events-last exam Had a BM yesterday Needs his home medication as he takes at home with the timing since the medication for the Myasthenia Gravis is completely off he reports I spent 5 minutes listening to his complaints about the night nurse and the medication he was given and what time Denies any significant other issues Overall doing pretty well otherwise Conferred with RN Reviewed therapy notes Checked meds and labs Review of Systems General: Fatigue, Malaise Musculoskeletal: back pain Objective Exam Vital Signs Vital Signs Date Time Temp Pulse Resp B/P (MAP) Pulse Ox O2 Delivery O2 Flow Rate FiO2 10/25/19 18:00 36.8 59 18 131/64 (86) 94 Room Air Capillary Refill : Less Than 3 SecondsLess Than 3 Seconds General Appearance: No Apparent Distress, WD/WN, Chronically ill, Obese HEENT: PERRL/EOMI, Normal ENT Inspection, Pharynx Normal Neck: Full Range of Motion, Normal Inspection, Non Tender, Supple, Carotid Bruit Respiratory: Chest Non Tender, Lungs Clear, Normal Breath Sounds, No Accessory Muscle Use, No Respiratory Distress Cardiovascular: Regular Rate, Rhythm, No Edema, No Gallop, No JVD, No Murmur, Normal Peripheral Pulses Gastrointestinal: Normal Bowel Sounds, No Organomegaly, No Pulsatile Mass, Non Tender, Soft Back: Decreased Range of Motion, Muscle Spasm, Vertebral Tenderness Extremity: Normal Capillary Refill, Normal Inspection, Normal Range of Motion, Non Tender, No Calf Tenderness, No Pedal Edema Neurologic/Psychiatric: Alert, Oriented x3, No Motor/Sensory Deficits, Normal Mood/Affect, comptroller II-XII Norm as Tested, Abnormal Gait, Depressed Affect, Disoriented (poor recall), Motor Weakness (legs 4/5) Skin: Normal Color, Warm/Dry Lymphatic: No Adenopathy Results/Procedures Lab Patient resulted labs reviewed. FIM Transfers Therapy Code Descriptions/Definitions Functional [place] Measure: 0=Not Assessed/NA 4=Minimal Assistance 1=Total Assistance 5=Supervision or Setup 2=Maximal Assistance 6=Modified [place] 3=Moderate Assistance 7=Complete IndependenceSCALE: Activities may be completed with or without assistive devices. 5-Okqyjqccmx-nuffpjo completes the activity by him/herself with no assistance from a helper. 5-Set-up or Clean-up Assistance-helper sets up or cleans up; patient completes activity. [place] assists only prior to or following the activity. 4-Supervision or Touching Assistance-helper provides verbal cues and/or touching/steadying and/or contact guard assistance as patient completes activity. Assistance may be provided throughout the activity or intermittently. 3-Partial/Moderate Assistance-helper does LESS THAN HALF the effort. [place] lifts, holds or supports trunk or limbs, but provides less than half the effort. 2-Substantial/Maximal Assistance-helper does MORE THAN HALF the effort. [place] lifts or holds trunk or limbs and provides more than half the effort. 8-Gwqtmtwjr-orvffk does ALL the effort. Patient does none of the effort to complete the activity. Or, the assistance of 2 or more helpers is required for the patient to complete the activity. If activity was not attempted, code reason: 7-Patient Refused. 9-Not Applicable-not attempted and the patient did not perform the activity before the current illness, exacerbation or injury. 10-Not Attempted due to Environmental Limitations-(lack of equipment, weather restraints, etc.). 88-Not Attempted due to Medical Conditions or Safety Concerns. Roll Left to Right (QC): 6 Sit to Lying (QC): 6 Sit to Stand (QC): 4 Chair/Knc-vd-Qkqmj Xfer(QC): 4 Car Transfer (QC): 4 Gait Training Does the Patient Walk?: Yes Distance: 150', 120', 150' Walk 10 feet (QC): 4 Walk 50 ft with 2 Turns(QC): 4 Walk 150 ft (QC): 4 Walking 10ft/uneven surface-QC: 4 Gait Persons Needed: 1 Gait Assistive Device: Walker 4 Wheeled Wheelchair Training Does the Pt Use a Wheelchair?: No Wheel 50 ft with 2 turns (QC): 9 Wheel 150 ft (QC): 9 Stair Training #of Steps: 1 1 Step (curb) (QC): 4 4 Steps (QC): 88 12 Steps (QC): 88 Balance Picking up an Object (QC): 88 ADL-Treatment Eating (QC): 6 (Reported by pt.) Oral Hygiene (QC): 4 (Pt. already completed per pt.) Shower/Bathe Self (QC): 4 (SBA/CGA in shower. Pt. able to bring bilateral feet up to him to wash, but this was difficult. Pt. able to wash dustin area in stance, but had difficulty as well as he strains to do so.) Upper Body Dressing (QC): 4 Lower Body Dressing (QC): 3 (Mod assist overall to don underwear and pants over feet. Pt. able to don over hips once he was standing.) On/Off Footwear (QC): 3 (Mod assist overall with use of AE.) Toileting Hygiene (QC): 4 (SBA) Toilet Transfer (QC): 3 (Min assist) Assessment/Plan Assessment and Plan Assess & Plan/Chief Complaint Assessment: Status post lumbar stenosis surgery POD # 5 Myasthenia gravis Slow recovery KWAN on CPAP Obesity GERD Hypertension Hyperlipidemia CAD Previous CABG 3 vessels Severe pain Plan: Inpatient rehab protocol Pain control Home meds Fall risk Bowel regimen Monitor closely No Lovenox or aspirin for 7 days Increase pain medication Reconcile home medication exactly to his request (1) Lumbar stenosis (2) Myasthenia gravis (3) KWAN on CPAP (4) CAD (coronary artery disease) (5) S/P CABG x 3 (6) Hypertension (7) Hyperlipemia (8) Obesity (9) GERD with esophagitis (10) Dementia (11) History of penile implant (12) Renal lithiasis MICHEL LOPEZ DO Oct 25, 2019 09:13
--- NOTE | 2019-10-25 12:05 | Occupational Ther Daily Note ---
OT Current Status-Daily Note Subjective Pt agreeable to treatment this am. Pt reports pain in back and posterior thighs, but does not rate. ADL-Treatment Therapy Code Descriptions/Definitions Functional [place] Measure: 0=Not Assessed/NA 4=Minimal Assistance 1=Total Assistance 5=Supervision or Setup 2=Maximal Assistance 6=Modified [place] 3=Moderate Assistance 7=Complete IndependenceSCALE: Activities may be completed with or without assistive devices. 4-Csedekikns-rrguecn completes the activity by him/herself with no assistance from a helper. 5-Set-up or Clean-up Assistance-helper sets up or cleans up; patient completes activity. [place] assists only prior to or following the activity. 4-Supervision or Touching Assistance-helper provides verbal cues and/or touching/steadying and/or contact guard assistance as patient completes activity. Assistance may be provided throughout the activity or intermittently. 3-Partial/Moderate Assistance-helper does LESS THAN HALF the effort. [place] lifts, holds or supports trunk or limbs, but provides less than half the effort. 2-Substantial/Maximal Assistance-helper does MORE THAN HALF the effort. [place] lifts or holds trunk or limbs and provides more than half the effort. 4-Umecqguox-wzzyhj does ALL the effort. Patient does none of the effort to complete the activity. Or, the assistance of 2 or more helpers is required for the patient to complete the activity. If activity was not attempted, code reason: 7-Patient Refused. 9-Not Applicable-not attempted and the patient did not perform the activity before the current illness, exacerbation or injury. 10-Not Attempted due to Environmental Limitations-(lack of equipment, weather restraints, etc.). 88-Not Attempted due to Medical Conditions or Safety Concerns. Oral Hygiene (QC): 5 (Pt completed oral care with set up while seated at sink) Shower/Bathe Self (QC): 4 (Pt completed bathing tasks while seated on shower bench. Pt used long handled sponge to wash lower body.) Upper Body Dressing (QC): 3 (Pt donned shirt with setup. Min assist to don brace.) Lower Body Dressing (QC): 3 (Pt used dressing stick to thread LE into underwear and pants with min assist. Stood with CGA for balance during pant hike.) On/Off Footwear: 4 (Pt donned socks using sock aid with verbal cues and SBA.) Toileting Hygiene (QC): 4 (Pt urinated while standing at toilet with SBA.) Pt requires cues for use of adaptive equipment for LE dressing. Increased time required for ADL tasks. Rest breaks taken as needed throughout session secondary to decreased activity tolerance. Pt sitting in chair with needs met after session. Education OT Patient Education: Modified ADL techniques Teaching Recipient: Patient Teaching Methods: Demonstration, Discussion Response to Teaching: Verbalize Understanding, Return Demonstration OT Short Term Goals Short Term Goals Time Frame: Oct 31, 2019 Eatin Oral hygiene: 6 Toileting hygiene: 5 Shower/bathe self: 4 Upper body dressin Lower body dressin Putting on/taking off footwear: 4 OT Chcf Goals [employer] Package Symbol Stamper Goals Time Frame: Nov 07, 2019 Eating (QC): 6 Oral Hygiene (QC): 6 Toileting Hygiene (QC): 6 Shower/Bathe Self (QC): 5 Upper Body Dressing (QC): 6 Lower Body Dressing (QC): 6 On/Off Footwear (QC): 6 Additional Goals: 1-Demonstrate ADL Tasks, 2-Verbalize Understanding, 3- ImproveStrength/[place] 1=Demonstrate adherence to instructed precautions during ADL tasks. 2=Patient will verbalize/demonstrate understanding of assistive devices/modifications for ADL. 3=Patient will improve strength/tolerance for activity to enable patient to perform ADL's. OT Education/Plan Discharge Recommendations Plan/Recommendations: Continue POC Treatment Plan/Plan of Care Patient would benefit from OT for education, treatment and training to promote independence in ADL's, mobility, safety and/or upper extremity function for ADL's. Plan of Care: ADL Retraining, Functional Mobility, Group Exercise/Act as Ind, UE Funct Exercise/Act Treatment Duration: Nov 07, 2019 Frequency: At least 5 of 7 days/Wk (IRF) Estimated Hrs Per Day: 1.5 hours per day Agreement: Yes Rehab Potential: Good Time/GCodes Start Time: 10:30 Stop Time: 11:30 Total Time Billed (hr/min): 60 Billed Treatment Time 1 visit, ADLx4(60minutes) JOHAN HAM OT Oct 25, 2019 12:05
[2019-10-25] MEDS: HYDROcodone/APAP 7.5 MG/325 MG (LORTAB, LORCET PLUS) TABLET PO PRN ×2 (12:44→20:50)
--- NOTE | 2019-10-25 13:48 | NUR ---
CM/SS ADMISSION Patient was admitted to ARU from [facility] October 23, 2019, post op for lumbar stenosis. Other comorbidities are, in part, myasthenia gravis, KWAN on CPAP, CAD, CABG x 3, HTN, dementia, obesity. Patient resides at home with his spouse and his goal is to return there upon discharge. He indicates his is able to assist him as necessary during this time of recuperation. He appears to be ambulating well with his 4WW within his current post op limitations. PCP: Dr. Craig Guzmán, DO, [place], [place], [facility]. [phone] PHARMACY: [facility] [place] INSURANCE: Medicare, [employer] DME: Has 4WW with seat, CPAP for KWAN, wheelchair for outings (he states he can not use it in his house). Patient agrees to a recommended shower chair, discussed that it is a private pay item. He will update his and have her purchase one according to his height and weight. BARRIERS TO DISCHARGE PLANNING: Nothing of significance noted unless patient condition changes to warrant an alternative to returning home. CONTACTS: Mckenzie Schmitz, Spouse [address] [place] [address] Patient states there are no other contacts he wishes to list. Mckenzei has a daughter that resides in [place]. Patient understands the purpose and process of the weekly patient care conference and that his first review will be Thursday10/26/19. Regarding post hospital therapy, patient wishes to have [facility] through [facility] if they have a scheduling opening; otherwise will explore alternate agencies serving patient's residency area.
--- NOTE | 2019-10-25 14:36 | Physical Therapy Daily Note ---
PT Daily Note-Current Subjective Patient in recliner pre tx, agrees to PT, has 8/10 pain in back. Patient states he would like to leave thursday, health and social care teacher notified. Patient would probably be appropriate to DC on thursday, he is performing all mobility without assist, has a at home to assist if needed, has steady ambulation using a 4-wheeled walker, pain control may be an issue. Appearance Patient in recliner post tx with nurse call, phone, tray, all needs met. Ice pack obtained for patient's back. Mental Status Patient Orientation: Person, Place, Situation back brace Transfers SCALE: Activities may be completed with or without assistive devices. 1-Bmdnzbatga-tuosilz completes the activity by him/herself with no assistance from a helper. 5-Set-up or Clean-up Assistance-helper sets up or cleans up; patient completes activity. [place] assists only prior to or following the activity. 4-Supervision or Touching Assistance-helper provides verbal cues and/or touching/steadying and/or contact guard assistance as patient completes activity. Assistance may be provided throughout the activity or intermittently. 3-Partial/Moderate Assistance-helper does LESS THAN HALF the effort. [place] lifts, holds or supports trunk or limbs, but provides less than half the effort. 2-Substantial/Maximal Assistance-helper does MORE THAN HALF the effort. [place] lifts or holds trunk or limbs and provides more than half the effort. 7-Pavcpsnpe-nrxyij does ALL the effort. Patient does none of the effort to complete the activity. Or, the assistance of 2 or more helpers is required for the patient to complete the activity. If activity was not attempted, code reason: 7-Patient Refused. 9-Not Applicable-not attempted and the patient did not perform the activity before the current illness, exacerbation or injury. 10-Not Attempted due to Environmental Limitations-(lack of equipment, weather restraints, etc.). 88-Not Attempted due to Medical Conditions or Safety Concerns. Sit to Stand (QC): 4 Chair/Yqv-wi-Ijxwf Xfer(QC): 4 SBA Gait Training Distance: 400'x2 Walk 10 feet (QC): 4 Walk 50 ft with 2 Turns(QC): 4 Walk 150 ft (QC): 4 Gait Assistive Device: Walker 4 Wheeled slow but steady ambulation, wide IVA Treatments transfers, ambulation Assessment Current Status: Fair Progress improving endurance, rest break between trips of ambulation PT Short Term Goals Short Term Goals Time Frame: Oct 31, 2019 Roll Left & Right: 6 Sit to lyin Lying to sitting on side of be: 6 Sit to stand: 5 Chair/zwo-gi-zwrge transfer: 5 Walk 10 feet: 5 Walk 50 feet with two turns: 5 Walk 150 feet: 5 PT Wig Sales Consultant Goals Halfway Goals PT Halfway Goals Time Frame: Nov 14, 2019 Roll Left & Right (QC): 6 Sit to Lying (QC): 6 Lying-Sitting on Side/Bed(QC): 6 Sit to Stand (QC): 6 Chair/Itt-cr-Hehju Xfer(QC): 6 Toilet Transfer (QC): 6 Car Transfer (QC): 6 Does the Patient Walk: Yes Walk 10 feet (QC): 6 Walk 50ft with 2 Turns (QC): 6 Walk 150 ft (QC): 6 Walking 10ft on Uneven Surface: 6 1 Step (curb) (QC): 4 4 Steps (QC): 4 12 Steps (QC): 88 Picking up an Object (QC): 88 Does the Pt use WC or Scooter?: No Wheel 50 feet with 2 turns (QC: 9 Wheel 150 feet: 9 PT Plan Problem List Problem List: Activity Tolerance, Functional Strength, Safety, Balance, Gait, Transfer, Bed Mobility, ROM Treatment/Plan Treatment Plan: Continue Plan of Care Treatment Plan: Bed Mobility, Education, Functional Activity [place], Functional Strength, Group Therapy, Gait, Safety, Therapeutic Exercise, Transfers Treatment Duration: Nov 14, 2019 Frequency: At least 5 of 7 days/Wk (IRF) Estimated Hrs Per Day: 1.5 hours per day Patient and/or Family Agrees t: Yes Safety Risks/Education Patient Education: Gait Training, Transfer Techniques, Correct Positioning, Reviewed Don/Doff Brace, Safety Issues Teaching Recipient: Patient Teaching Methods: Demonstration, Discussion Response to Teaching: Reinforcement Needed Time/GCodes Time In: 1400 Time Out: 1430 Total Billed Treatment Time: 30 Total Billed Treatment 1 visit GT 30' JOHNSON CRUZ PT Oct 25, 2019 14:36
--- NOTE | 2019-10-25 15:00 | Occupational Ther Daily Note ---
OT Current Status-Daily Note Subjective Pt agrees to therapy with encouragement. Reports 8/10 back and LE pain. ADL-Treatment Therapy Code Descriptions/Definitions Functional [place] Measure: 0=Not Assessed/NA 4=Minimal Assistance 1=Total Assistance 5=Supervision or Setup 2=Maximal Assistance 6=Modified [place] 3=Moderate Assistance 7=Complete IndependenceSCALE: Activities may be completed with or without assistive devices. 7-Jmpzuzoxwn-xwhlnca completes the activity by him/herself with no assistance from a helper. 5-Set-up or Clean-up Assistance-helper sets up or cleans up; patient completes activity. [place] assists only prior to or following the activity. 4-Supervision or Touching Assistance-helper provides verbal cues and/or touching/steadying and/or contact guard assistance as patient completes activity. Assistance may be provided throughout the activity or intermittently. 3-Partial/Moderate Assistance-helper does LESS THAN HALF the effort. [place] lifts, holds or supports trunk or limbs, but provides less than half the effort. 2-Substantial/Maximal Assistance-helper does MORE THAN HALF the effort. [place] lifts or holds trunk or limbs and provides more than half the effort. 0-Flmliipaa-hkiefq does ALL the effort. Patient does none of the effort to complete the activity. Or, the assistance of 2 or more helpers is required for the patient to complete the activity. If activity was not attempted, code reason: 7-Patient Refused. 9-Not Applicable-not attempted and the patient did not perform the activity before the current illness, exacerbation or injury. 10-Not Attempted due to Environmental Limitations-(lack of equipment, weather restraints, etc.). 88-Not Attempted due to Medical Conditions or Safety Concerns. Other Treatment Pt supine to sit with SBA and increased time, cues for appropriate technique. Pt donned back brace with min assist. Sit to stand with SBA. Gait to therapy gym with 4WW, slow pace. Transfer to chair with supervision. Pt completed resistance peg activity with bilateral UE with 1# weights in place to increase strength, activity tolerance, and coordination/manipulation skills. Pt completed activity with increased time. Pt ambulated back to room with increased time. Transferred to chair with supervision. Pt sitting in chair with needs met after session. OT Short Term Goals Short Term Goals Time Frame: Oct 31, 2019 Eatin Oral hygiene: 6 Toileting hygiene: 5 Shower/bathe self: 4 Upper body dressin Lower body dressin Putting on/taking off footwear: 4 OT Fdc Goals Fleet Mechanic Goals Time Frame: Nov 07, 2019 Eating (QC): 6 Oral Hygiene (QC): 6 Toileting Hygiene (QC): 6 Shower/Bathe Self (QC): 5 Upper Body Dressing (QC): 6 Lower Body Dressing (QC): 6 On/Off Footwear (QC): 6 Additional Goals: 1-Demonstrate ADL Tasks, 2-Verbalize Understanding, 3-ImproveStrength/[place] 1=Demonstrate adherence to instructed precautions during ADL tasks. 2=Patient will verbalize/demonstrate understanding of assistive devices/modifications for ADL. 3=Patient will improve strength/tolerance for activity to enable patient to perform ADL's. OT Education/Plan Discharge Recommendations Plan/Recommendations: Continue POC Treatment Plan/Plan of Care Patient would benefit from OT for education, treatment and training to promote independence in ADL's, mobility, safety and/or upper extremity function for ADL's. Plan of Care: ADL Retraining, Functional Mobility, Group Exercise/Act as Ind, UE Funct Exercise/Act Treatment Duration: Nov 07, 2019 Frequency: At least 5 of 7 days/Wk (IRF) Estimated Hrs Per Day: 1.5 hours per day Agreement: Yes Rehab Potential: Good Time/GCodes Start Time: 13:30 Stop Time: 14:00 Total Time Billed (hr/min): 30 Billed Treatment Time 1 visit, FA(10minutes), Ex(20minutes) JOHAN HAM OT Oct 25, 2019 15:00
--- NOTE | 2019-10-25 15:08 | ST Cognitive Linguistic Eval ---
Speech Evaluation-General Medical Diagnosis lumbar stenosis surgery Onset Date: Oct 21, 2019 Therapy Diagnosis Therapy Diagnosis: Cognitive-communication Referral Referring Physician: Dr. Jasso Medical History Pertinent Medical History: Arthritis, CABG, CAD, Dementia, GERD, HTN Reviewed History: Yes Social History Current Living Status: Spouse Speech PLF-Current Status Prior Level of Function Patient lived at home with his where he received assistance with his daily needs. Subjective Patient was cooperative with the cognitive assessment. Language Eval: Auditory Comprehends Simple Yes/No Ques: Functional Indent/Objects [place]: Functional Ident/Pics in [place]: Functional Follows 1-Step Commands: Functional Follows Complex Directions: Functional Follows General Conversations: Functional Language Eval: Verbal Language Completes Spontaneous Greeting: Functional Produces Auto, Serial Info: Functional Imitates Simple Words/Phrases: Functional Word Finding: Functional Requests Basic Needs: Functional States Basic Personal Info: Functional Expresses Complex Ideas: Functional Objective Cognitive Domain Attention: WNL Memory: WNL Problem Solving: Functional Executive Functions: WNL Visuospatial Skills: WNL Composite Severity Rating: WNL Clock Drawing Severity Rating: WNL Objective Formal/Standardized Tests [facility] Mental Status ([facility]) Results 27/30, within normal range of function Oral Motor/Speech Production Within Normal Limits Impression Patient is a 69 y/o male who was admitted to the ARU s/p spine surgery.. Patient was given the SLUMS at bedside with a score of 27/30 obtained. This score is within the normal range of function. Patient does not require further ST services at this time. Speech Patient Assess Expression of Ideas/Wants: Expression (4) Understanding Verbal Content: Understands (4) Brief Interview-Mental Status: Yes Repetition of Three Words: Three (3) Temporal Orientation: Year: Correct (3) Temporal Orientation: Month: Accurate within 5 days(2) Temporal Orientation: Day: Correct (1) Recall : Wear to say "Sock": Yes, no cue required (2) Recall : Color: Yes, no cue required (2) Recall : Bed: Yes,after cueing (1) Memory/Recall Ability: Current season, Location of own room, That he or she is in a hsp/hsp unit Speech-Plan Patient/Family Goals Patient/Family Goals: Patient plans on returning home with his upon discharge. Treatment Plan Speech Therapy Treatment Plan: Discontinue ST Treatment Duration: Oct 25, 2019 Frequency: 1 time per week Estimated Hrs Per Day: .25 hour per day Rehab Potential: Good Barriers to Learning: None identified Pt/Family Agrees to Plan: Yes Safety Risks/Education Teaching Recipient: Patient Teaching Methods: Discussion Response to Teaching: Verbalize Understanding Education Topics Provided: Safety within his room and communication of wants/needs Time Speech Therapy Time In: 09:15 Speech Therapy Time Out: 09:30 Total Billed Time: 15 Billed Treatment Time 1, SPSNDCOMP JEOVANY Sidhu Oct 25, 2019 15:08
[2019-10-25] MEDS: MYCOPHENOLATE 1000 MG PO SCH (15:39)
[2019-10-25] MEDS ORDERED: PATIENT MAY USE OWN MED,SINGLE MED PO SCH (16:00)
[2019-10-25 18:00] VITALS: BP 131/64
--- NOTE | 2019-10-25 19:07 | NUR ---
bedside report received from PRANAV STEINER, assume care of pt
[2019-10-25] MEDS: DONEPEZIL 10 MG (ARICEPT) TAB PO SCH (20:45)
[2019-10-25] MEDS: PRIMIDONE 50 MG TAB (MYSOLINE) PO SCH (20:45)
[2019-10-25] MEDS: FENOFIBRATE 134 MG (LOFIBRA) CAPSULE PO SCH (20:46)
--- NOTE | 2019-10-25 20:46 | NUR ---
pt refused Colace, miralax & Senokot, heart rate 58 Imdur held, c/o back pain level 7/10 on numeric scale, Lortab 5 1 tab given
[2019-10-25] MEDS: traZODone 100 MG (DESYREL) TAB PO SCH (20:48)
[2019-10-25] MEDS: FLUTICASONE NASAL SPRAY (FLONASE) 16 GM BTL NS SCH (20:52)
[2019-10-25] MEDS: ISOSORBIDE MONONITRATE 30 MG (IMDUR) TAB PO SCH (20:53)
[2019-10-25] MEDS ORDERED: MYCOPHENOLATE 500 MG TABLET PO SCH (21:00)
--- NOTE | 2019-10-25 21:30 | NUR ---
rates pain 3/10 on numeric scale
[2019-10-26] MEDS: HYDROcodone/APAP 7.5 MG/325 MG (LORTAB, LORCET PLUS) TABLET PO PRN ×4 (02:23→20:53)
--- NOTE | 2019-10-26 02:23 | NUR ---
c/o back pain level 5/10 on numeric scale, lortab 7.5mg 1 tab given
--- NOTE | 2019-10-26 03:05 | NUR ---
resting quietly in bed, pain level 0/10 on CNPI SCALE
[2019-10-26 05:00] VITALS: BP 150/88
--- NOTE | 2019-10-26 06:16 | PM&R Progress Note ---
Subjective HPI/CC On Admission Date Seen by Provider: Oct 26, 2019 Time Seen by Provider: 09:15 Subjective/Events-last exam Imdur was held due to bradycardia but that doesn't alter heart rate so will just change the parameters and discontinue the heart rate parameter and hold if it is less than 110 systolic Bowels are moving okay Wants to go home to see his family since they are in [place] going back to [place], he would like to go home on Thursday Much nicer and has been easier to work with today Conferred with RN Reviewed therapy notes Checked meds and labs Review of Systems General: Fatigue, Malaise Musculoskeletal: back pain Objective Exam Vital Signs Vital Signs Date Time Temp Pulse Resp B/P (MAP) Pulse Ox O2 Delivery O2 Flow Rate FiO2 10/26/19 18:00 36.5 66 16 97/56 (70) 93 Room Air Capillary Refill : Less Than 3 SecondsLess Than 3 Seconds General Appearance: No Apparent Distress, WD/WN, Chronically ill, Obese HEENT: PERRL/EOMI, Normal ENT Inspection, Pharynx Normal Neck: Full Range of Motion, Normal Inspection, Non Tender, Supple, Carotid Bruit Respiratory: Chest Non Tender, Lungs Clear, Normal Breath Sounds, No Accessory Muscle Use, No Respiratory Distress Cardiovascular: Regular Rate, Rhythm, No Edema, No Gallop, No JVD, No Murmur, Normal Peripheral Pulses Gastrointestinal: Normal Bowel Sounds, No Organomegaly, No Pulsatile Mass, Non Tender, Soft Back: Decreased Range of Motion, Muscle Spasm, Vertebral Tenderness Extremity: Normal Capillary Refill, Normal Inspection, Normal Range of Motion, Non Tender, No Calf Tenderness, No Pedal Edema Neurologic/Psychiatric: Alert, Oriented x3, No Motor/Sensory Deficits, Normal Mood/Affect, package delivery room service runner II-XII Norm as Tested, Abnormal Gait, Depressed Affect, Disoriented (poor recall), Motor Weakness (legs 4/5) Skin: Normal Color, Warm/Dry Lymphatic: No Adenopathy Results/Procedures Lab Patient resulted labs reviewed. FIM Transfers Therapy Code Descriptions/Definitions Functional [place] Measure: 0=Not Assessed/NA 4=Minimal Assistance 1=Total Assistance 5=Supervision or Setup 2=Maximal Assistance 6=Modified [place] 3=Moderate Assistance 7=Complete IndependenceSCALE: Activities may be completed with or without assistive devices. 7-Rueintpmad-bqsjkyi completes the activity by him/herself with no assistance from a helper. 5-Set-up or Clean-up Assistance-helper sets up or cleans up; patient completes activity. [place] assists only prior to or following the activity. 4-Supervision or Touching Assistance-helper provides verbal cues and/or touching/steadying and/or contact guard assistance as patient completes activity. Assistance may be provided throughout the activity or intermittently. 3-Partial/Moderate Assistance-helper does LESS THAN HALF the effort. [place] lifts, holds or supports trunk or limbs, but provides less than half the effort. 2-Substantial/Maximal Assistance-helper does MORE THAN HALF the effort. [place] lifts or holds trunk or limbs and provides more than half the effort. 9-Bysqhadoa-aeitkh does ALL the effort. Patient does none of the effort to complete the activity. Or, the assistance of 2 or more helpers is required for the patient to complete the activity. If activity was not attempted, code reason: 7-Patient Refused. 9-Not Applicable-not attempted and the patient did not perform the activity before the current illness, exacerbation or injury. 10-Not Attempted due to Environmental Limitations-(lack of equipment, weather restraints, etc.). 88-Not Attempted due to Medical Conditions or Safety Concerns. Roll Left to Right (QC): 6 Sit to Lying (QC): 6 Sit to Stand (QC): 4 Chair/Vcf-zl-Qatwc Xfer(QC): 4 Car Transfer (QC): 4 Gait Training Does the Patient Walk?: Yes Distance: 400'x2 Walk 10 feet (QC): 4 Walk 50 ft with 2 Turns(QC): 4 Walk 150 ft (QC): 4 Walking 10ft/uneven surface-QC: 4 Gait Persons Needed: 1 Gait Assistive Device: Walker 4 Wheeled Wheelchair Training Does the Pt Use a Wheelchair?: No Wheel 50 ft with 2 turns (QC): 9 Wheel 150 ft (QC): 9 Type of Wheelchair: N/A Stair Training #of Steps: 1 1 Step (curb) (QC): 4 4 Steps (QC): 88 12 Steps (QC): 88 Balance Picking up an Object (QC): 88 ADL-Treatment Eating (QC): 6 (Reported by pt.) Oral Hygiene (QC): 5 (Pt completed oral care with set up while seated at sink) Shower/Bathe Self (QC): 4 (Pt completed bathing tasks while seated on shower bench. Pt used long handled sponge to wash lower body.) Upper Body Dressing (QC): 3 (Pt donned shirt with setup. Min assist to don brace.) Lower Body Dressing (QC): 3 (Pt used dressing stick to thread LE into underwear and pants with min assist. Stood with CGA for balance during pant hike.) On/Off Footwear (QC): 4 (Pt donned socks using sock aid with verbal cues and SBA.) Toileting Hygiene (QC): 4 (Pt urinated while standing at toilet with SBA.) Toilet Transfer (QC): 3 (Min assist) Assessment/Plan Assessment and Plan Assess & Plan/Chief Complaint Assessment: Status post lumbar stenosis surgery POD # 6 Myasthenia gravis Slow recovery KWAN on CPAP Obesity GERD Hypertension Hyperlipidemia CAD Previous CABG 3 vessels Severe pain Plan: Inpatient rehab protocol Pain control Home meds Fall risk Bowel regimen Monitor closely No Lovenox or aspirin for 7 days Increase pain medication Reconcile home medication exactly to his request Discharge possibly on Thursday coinciding with his children leaving [facility] to be able to see them (1) Lumbar stenosis (2) Myasthenia gravis (3) KWAN on CPAP (4) CAD (coronary artery disease) (5) S/P CABG x 3 (6) Hypertension (7) Hyperlipemia (8) Obesity (9) GERD with esophagitis (10) Dementia (11) History of penile implant (12) Renal lithiasis MICHEL LOPEZ DO Oct 26, 2019 06:16
--- NOTE | 2019-10-26 06:52 | NUR ---
states i have to eat before I take vitamin, I will take it with my 0900am pills
[2019-10-26] MEDS: LOSARTAN 100 MG (COZAAR) TABLET PO SCH (08:24)
[2019-10-26] MEDS: MULTIVIT W/MINERALS TAB (THERAGRAN M) PO SCH (08:24)
[2019-10-26] MEDS: LORATADINE (CLARITIN) 10 MG TAB PO SCH (08:24)
[2019-10-26] MEDS: GABAPENTIN 600 MG (NEURONTIN) TAB PO SCH ×3 (08:25→20:50)
[2019-10-26] MEDS: VITAMIN D3 125 MCG (5,000 UNITS) CAPSULE PO SCH (08:25)
[2019-10-26] MEDS: ASCORBIC ACID (VIT C) 500 MG TABLET PO SCH (08:26)
[2019-10-26] MEDS: ATENOLOL 50 MG (TENORMIN) TAB PO SCH (08:26)
[2019-10-26] MEDS: PANTOPRAZOLE 40 MG (PROTONIX) TAB PO SCH (08:26)
[2019-10-26] MEDS: MYCOPHENOLATE 1000 MG PO SCH ×2 (08:29→16:36)
[2019-10-26] MEDS: PYRIDOSTIGMINE 60 MG TABLET PO SCH ×3 (08:29→20:51)
[2019-10-26] MEDS: DOCUSATE SODIUM 100 MG (COLACE) CAP PO SCH ×2 (08:30→20:50)
[2019-10-26] MEDS: polyethylene glycoL POWDER 17 GM (MIRALAX) PACK PO SCH ×2 (08:30→20:56)
[2019-10-26] MEDS: SENNA W/DOCUSATE (SENOKOT S) TABLET PO SCH ×2 (08:31→20:49)
--- NOTE | 2019-10-26 09:06 | Physical Therapy Daily Note ---
PT Daily Note-Current Subjective Pt. agrees to Rx and states he hopes to go home on Thursday. "I have help and my kids will be there then." Rates pain in LEs at 5-6/10 Pain Numeric Pain Scale: 5-Moderate Pain Location: Right Location Body Site: Thigh (posterior bilat LEs) Pain Description: Pressure Mental Status Patient Orientation: Normal For Age Attachments: Other-See Comments (back brace) Transfers SCALE: Activities may be completed with or without assistive devices. 5-Mzvoigbsjz-bzxnyqa completes the activity by him/herself with no assistance from a helper. 5-Set-up or Clean-up Assistance-helper sets up or cleans up; patient completes activity. [place] assists only prior to or following the activity. 4-Supervision or Touching Assistance-helper provides verbal cues and/or touching/steadying and/or contact guard assistance as patient completes activity. Assistance may be provided throughout the activity or intermittently. 3-Partial/Moderate Assistance-helper does LESS THAN HALF the effort. [place] lifts, holds or supports trunk or limbs, but provides less than half the effort. 2-Substantial/Maximal Assistance-helper does MORE THAN HALF the effort. [place] lifts or holds trunk or limbs and provides more than half the effort. 5-Hyyczccev-cpvohq does ALL the effort. Patient does none of the effort to complete the activity. Or, the assistance of 2 or more helpers is required for the patient to complete the activity. If activity was not attempted, code reason: 7-Patient Refused. 9-Not Applicable-not attempted and the patient did not perform the activity before the current illness, exacerbation or injury. 10-Not Attempted due to Environmental Limitations-(lack of equipment, weather restraints, etc.). 88-Not Attempted due to Medical Conditions or Safety Concerns. Roll Left & Right (QC): 6 Sit to Lying (QC): 6 Lying to Sitting/Side of Bed(Q: 6 Sit to Stand (QC): 6 Chair/Kdj-bc-Dsait Xfer(QC): 6 Gait Training Does the Patient Walk?: Yes Walk 10 feet (QC): 5 Walk 50 ft with 2 Turns(QC): 5 Walk 150 ft (QC): 5 Gait Persons Needed: 1 Gait Assistive Device: Walker 4 Wheeled Pts. gait stable no deanna LOB. manages 4WW Exercises Supine Ex: Ankle pumps, Quad Set, Rolling, Glut sets, Heel Slides, Short Arc Quads, Hip abd/add Supine Reps: 20 Seated Therapy Exercises: Ankle pumps, Sit to stand, Long arc quads, Hip flexion, Hip abd/add Seated Reps: 20 Treatments needs min assist to don brace Assessment Current Status: Good Progress pt. will likely be ready to DC thu PT Short Term Goals Short Term Goals Time Frame: Oct 31, 2019 Roll Left & Right: 6 Sit to lyin Lying to sitting on side of be: 6 Sit to stand: 5 Chair/rvd-bg-olzvp transfer: 5 Walk 10 feet: 5 Walk 50 feet with two turns: 5 Walk 150 feet: 5 PT [facility] Goals School Physical Therapist Goals PT School Physical Therapist Goals Time Frame: Nov 14, 2019 Roll Left & Right (QC): 6 Sit to Lying (QC): 6 Lying-Sitting on Side/Bed(QC): 6 Sit to Stand (QC): 6 Chair/Hjj-pj-Fxazx Xfer(QC): 6 Toilet Transfer (QC): 6 Car Transfer (QC): 6 Does the Patient Walk: Yes Walk 10 feet (QC): 6 Walk 50ft with 2 Turns (QC): 6 Walk 150 ft (QC): 6 Walking 10ft on Uneven Surface: 6 1 Step (curb) (QC): 4 4 Steps (QC): 4 12 Steps (QC): 88 Picking up an Object (QC): 88 Does the Pt use WC or Scooter?: No Wheel 50 feet with 2 turns (QC: 9 Wheel 150 feet: 9 PT Plan Treatment/Plan Treatment Plan: Continue Plan of Care Treatment Plan: Bed Mobility, Education, Functional Activity [place], Functional Strength, Group Therapy, Gait, Safety, Therapeutic Exercise, Transfers Treatment Duration: Nov 14, 2019 Frequency: At least 5 of 7 days/Wk (IRF) Estimated Hrs Per Day: 1.5 hours per day Patient and/or Family Agrees t: Yes Safety Risks/Education Patient Education: Gait Training, Transfer Techniques, Correct Positioning, Reviewed Don/Doff Brace, Disease Process, Safety Issues Teaching Recipient: Patient Teaching Methods: Demonstration, Discussion Response to Teaching: Return Demonstration, Reinforcement Needed Time/GCodes Time In: 800 Time Out: 900 Total Billed Treatment Time: 60 Total Billed Treatment 1,GT15m,FA25m,EX20m KOURTNEY JOHNSON PACKING SHED SUPERVISOR Oct 26, 2019 09:06
--- NOTE | 2019-10-26 11:14 | Occupational Ther Daily Note ---
OT Current Status-Daily Note Subjective Pt. in reclining chair on phone when OT entered room. Pt. agreed to therapy, requesting to clean up and get changed. Pt. c/o pain, but reported that it was not time for more pain meds. Mental Status/Objective Patient Orientation: Person, Place, Time, Situation ADL-Treatment Therapy Code Descriptions/Definitions Functional [place] Measure: 0=Not Assessed/NA 4=Minimal Assistance 1=Total Assistance 5=Supervision or Setup 2=Maximal Assistance 6=Modified [place] 3=Moderate Assistance 7=Complete IndependenceSCALE: Activities may be completed with or without assistive devices. 5-Bkqicmeozh-yxxxeei completes the activity by him/herself with no assistance from a helper. 5-Set-up or Clean-up Assistance-helper sets up or cleans up; patient completes activity. [place] assists only prior to or following the activity. 4-Supervision or Touching Assistance-helper provides verbal cues and/or touching/steadying and/or contact guard assistance as patient completes activity. Assistance may be provided throughout the activity or intermittently. 3-Partial/Moderate Assistance-helper does LESS THAN HALF the effort. [place] lifts, holds or supports trunk or limbs, but provides less than half the effort. 2-Substantial/Maximal Assistance-helper does MORE THAN HALF the effort. [place] lifts or holds trunk or limbs and provides more than half the effort. 5-Brcmkrhha-tmdpom does ALL the effort. Patient does none of the effort to co mplete the activity. Or, the assistance of 2 or more helpers is required for the patient to complete the activity. If activity was not attempted, code reason: 7-Patient Refused. 9-Not Applicable-not attempted and the patient did not perform the activity before the current illness, exacerbation or injury. 10-Not Attempted due to Environmental Limitations-(lack of equipment, weather restraints, etc.). 88-Not Attempted due to Medical Conditions or Safety Concerns. Oral Hygiene (QC): 5 (Set up assistance) Shower/Bathe Self (QC): 4 Upper Body Dressing (QC): 3 (Min assist) Lower Body Dressing (QC): 3 On/Off Footwear: 4 Toileting Hygiene (QC): 4 Toilet Transfer (QC): 4 Pt. requested washing up while seated in chair in bathroom with warm wash clothes and sponge. Pt. transferred sit-stand and ambulated to the bathroom with CGA assistance.Once seated in chair, pt. doffed socks, pants, and underwear using a dressing stick with SBA to follow back precautions. Pt. cleaned body using washcloths and long handled sponge with SBA. Pt. donned underwear and pants using sanding machine tender automatic and min A for threading legs in proper pant leg. Pt. educated on importance of wearing brace and following precautions when out of bed. Pt. refused stating he was sitting and not doing anything to hurt it. Pt. completed grooming with setup assistance. Pt. dressed UB with min A for pulling shirt over R shoulder. Pt. reminded about the importance of back brace and agreed to comply. Pt. transferred to toilet with CGA. Pt. completed toilet hygiene and dustin area cleansing with SBA to follow back precautions. Pt. ambulated back to reclining chair with all items in reach when therapy left the room. All needs met. Education OT Patient Education: Correct positioning, Energy conservation, Modified ADL techniques, Progress toward Goal/Update tx plan, Purpose of tx/functional acti vities, Reviewed precautions, Rehab process, Safety issues, Transfer techniques, Use of adapted equipment Teaching Recipient: Patient Teaching Methods: Demonstration, Discussion Response to Teaching: Verbalize Understanding, Return Demonstration, Reinforcement Needed OT Short Term Goals Short Term Goals Time Frame: Oct 31, 2019 Eatin Oral hygiene: 6 Toileting hygiene: 5 Shower/bathe self: 4 Upper body dressin Lower body dressin Putting on/taking off footwear: 4 OT Residential Goals Residential Goals Time Frame: Nov 07, 2019 Eating (QC): 6 Oral Hygiene (QC): 6 Toileting Hygiene (QC): 6 Shower/Bathe Self (QC): 5 Upper Body Dressing (QC): 6 Lower Body Dressing (QC): 6 On/Off Footwear (QC): 6 Additional Goals: 1-Demonstrate ADL Tasks, 2-Verbalize Understanding, 3-ImproveStrength/[place] 1=Demonstrate adherence to instructed precautions during ADL tasks. 2=Patient will verbalize/demonstrate understanding of assistive devices/modifications for ADL. 3=Patient will improve strength/tolerance for activity to enable patient to perform ADL's. OT Education/Plan Problem List/Assessment Assessment: Decreased Activ Tolerance, Decreased Safety Aware, Decreased UE Strength, Dependent Transfers, Impaired Funct Balance, Impaired I ADL's, Impaired Self-Care Skills, Restricted Funct UE ROM Discharge Recommendations Plan/Recommendations: Continue POC Equpiment Recommendations-D/C: Bath Chair, Hip Kit Treatment Plan/Plan of Care Treatment,Training & Education: Yes Patient would benefit from OT for education, treatment and training to promote i ndependence in ADL's, mobility, safety and/or upper extremity function for ADL's. Plan of Care: ADL Retraining, Functional Mobility, Group Exercise/Act as Ind, UE Funct Exercise/Act Treatment Duration: Nov 07, 2019 Frequency: At least 5 of 7 days/Wk (IRF) Estimated Hrs Per Day: 1.5 hours per day Agreement: Yes Rehab Potential: Good Time/GCodes Start Time: 10:00 Stop Time: 11:00 Total Time Billed (hr/min): 60 Billed Treatment Time 1, ADL x4 JOHAN HAM OT Oct 26, 2019 11:14
--- NOTE | 2019-10-26 13:32 | Occupational Ther Daily Note ---
OT Current Status-Daily Note Subjective Pt sitting in chair, agrees to therapy. Pt reports 7/10 pain in legs, requests pain pill. RN notified of pt request. ADL-Treatment Pt donned back brace with SBA. Pt sit to stand with supervision. Gait to restroom with 4WW. Pt transferred to toilet with SBA. Pt able to complete toileting hygiene and clothing management with SBA and increased time. Stood at sink to wash hands with SBA. Seated rest break taken after toileting secondary to c/o fatigue and pain. Pt then performed gait around rehab unit with 4WW. Pt ambulates with slow pace, but no LOB noted. Pt took one seated rest break and then returned to room. Transfer to recliner chair with SBA. Pt sitting in chair with needs met after session. Therapy Code Descriptions/Definitions Functional [place] Measure: 0=Not Assessed/NA 4=Minimal Assistance 1=Total Assistance 5=Supervision or Setup 2=Maximal Assistance 6=Modified [place] 3=Moderate Assistance 7=Complete IndependenceSCALE: Activities may be completed with or without assistive devices. 1-Zbkphhdiaw-vcxkqfd completes the activity by him/herself with no assistance from a helper. 5-Set-up or Clean-up Assistance-helper sets up or cleans up; patient completes activity. [place] assists only prior to or following the activity. 4-Supervision or Touching Assistance-helper provides verbal cues and/or touching/steadying and/or contact guard assistance as patient completes activity. Assistance may be provided throughout the activity or intermittently. 3-Partial/Moderate Assistance-helper does LESS THAN HALF the effort. [place] lifts, holds or supports trunk or limbs, but provides less than half the effort. 2-Substantial/Maximal Assistance-helper does MORE THAN HALF the effort. [place] lifts or holds trunk or limbs and provides more than half the effort. 1-Vwlbshflf-wsyfef does ALL the effort. Patient does none of the effort to complete the activity. Or, the assistance of 2 or more helpers is required for the patient to complete the activity. If activity was not attempted, code reason: 7-Patient Refused. 9-Not Applicable-not attempted and the patient did not perform the activity before the current illness, exacerbation or injury. 10-Not Attempted due to Environmental Limitations-(lack of equipment, weather restraints, etc.). 88-Not Attempted due to Medical Conditions or Safety Concerns. Toileting Hygiene (QC): 4 Toilet Transfer (QC): 4 OT Short Term Goals Short Term Goals Time Frame: Oct 31, 2019 Eatin Oral hygiene: 6 Toileting hygiene: 5 Shower/bathe self: 4 Upper body dressin Lower body dressin Putting on/taking off footwear: 4 OT Mandrel Maker Goals Care Home Goals Time Frame: Nov 07, 2019 Eating (QC): 6 Oral Hygiene (QC): 6 Toileting Hygiene (QC): 6 Shower/Bathe Self (QC): 5 Upper Body Dressing (QC): 6 Lower Body Dressing (QC): 6 On/Off Footwear (QC): 6 Additional Goals: 1-Demonstrate ADL Tasks, 2-Verbalize Understanding, 3-ImproveStrength/[place] 1=Demonstrate adherence to instructed precautions during ADL tasks. 2=Patient will verbalize/demonstrate understanding of assistive devices/modifications for ADL. 3=Patient will improve strength/tolerance for activity to enable patient to perform ADL's. OT Education/Plan Discharge Recommendations Plan/Recommendations: Continue POC Treatment Plan/Plan of Care Patient would benefit from OT for education, treatment and training to promote independence in ADL's, mobility, safety and/or upper extremity function for ADL's. Plan of Care: ADL Retraining, Functional Mobility, Group Exercise/Act as Ind, UE Funct Exercise/Act Treatment Duration: Nov 07, 2019 Frequency: At least 5 of 7 days/Wk (IRF) Estimated Hrs Per Day: 1.5 hours per day Agreement: Yes Rehab Potential: Good Time/GCodes Start Time: 13:00 Stop Time: 13:30 Total Time Billed (hr/min): 30 Billed Treatment Time 1 visit, ADL(15minutes), FA(15minutes) JOHAN HAM OT Oct 26, 2019 13:31
--- NOTE | 2019-10-26 14:10 | Physical Therapy Daily Note ---
PT Daily Note-Current Subjective Pt. states he hopes to have a pain pill soon. Rates his pain at 8/10 during TRF sit to stand and sit to sup Pain Numeric Pain Scale: 6 Location: Right (and left) Location Body Site: Thigh Pain Description: Pressure Mental Status Patient Orientation: Normal For Age Transfers SCALE: Activities may be completed with or without assistive devices. 1-Koudelbuez-vnamchm completes the activity by him/herself with no assistance from a helper. 5-Set-up or Clean-up Assistance-helper sets up or cleans up; patient completes activity. [place] assists only prior to or following the activity. 4-Supervision or Touching Assistance-helper provides verbal cues and/or touching/steadying and/or contact guard assistance as patient completes activity. Assistance may be provided throughout the activity or intermittently. 3-Partial/Moderate Assistance-helper does LESS THAN HALF the effort. [place] lifts, holds or supports trunk or limbs, but provides less than half the effort. 2-Substantial/Maximal Assistance-helper does MORE THAN HALF the effort. [place] lifts or holds trunk or limbs and provides more than half the effort. 0-Gukqybgyp-hzspuy does ALL the effort. Patient does none of the effort to complete the activity. Or, the assistance of 2 or more helpers is required for the patient to complete the activity. If activity was not attempted, code reason: 7-Patient Refused. 9-Not Applicable-not attempted and the patient did not perform the activity before the current illness, exacerbation or injury. 10-Not Attempted due to Environmental Limitations-(lack of equipment, weather restraints, etc.). 88-Not Attempted due to Medical Conditions or Safety Concerns. sit to stand x 5 all SBA, sit to sup SBA slow with def need for bed rail Gait Training Does the Patient Walk?: Yes Gait Assistive Device: Walker 4 Wheeled 160 ft x 2 slow, SBA to Mod I Exercises Seated Therapy Exercises: Ankle pumps, Sit to stand, Long arc quads, Hip fle xion, Hip abd/add Seated Reps: 20 Treatments doffs back brace indep, dons min assist Assessment Current Status: Good Progress PT Short Term Goals Short Term Goals Time Frame: Oct 31, 2019 Roll Left & Right: 6 Sit to lyin Lying to sitting on side of be: 6 Sit to stand: 5 Chair/wnw-np-nukbf transfer: 5 Walk 10 feet: 5 Walk 50 feet with two turns: 5 Walk 150 feet: 5 PT Foot Miter Operator Goals Mcfp Goals PT [place] M[place] Operator Goals Time Frame: Nov 14, 2019 Roll Left & Right (QC): 6 Sit to Lying (QC): 6 Lying-Sitting on Side/Bed(QC): 6 Sit to Stand (QC): 6 Chair/Bdv-ro-Lksku Xfer(QC): 6 Toilet Transfer (QC): 6 Car Transfer (QC): 6 Does the Patient Walk: Yes Walk 10 feet (QC): 6 Walk 50ft with 2 Turns (QC): 6 Walk 150 ft (QC): 6 Walking 10ft on Uneven Surface: 6 1 Step (curb) (QC): 4 4 Steps (QC): 4 12 Steps (QC): 88 Picking up an Object (QC): 88 Does the Pt use WC or Scooter?: No Wheel 50 feet with 2 turns (QC: 9 Wheel 150 feet: 9 PT Plan Treatment/Plan Treatment Plan: Continue Plan of Care Treatment Plan: Bed Mobility, Education, Functional Activity [place], Functional Strength, Group Therapy, Gait, Safety, Therapeutic Exercise, Transfers Treatment Duration: Nov 14, 2019 Frequency: At least 5 of 7 days/Wk (IRF) Estimated Hrs Per Day: 1.5 hours per day Patient and/or Family Agrees t: Yes Safety Risks/Education Patient Education: Gait Training, Transfer Techniques, Correct Positioning, Reviewed Don/Doff Brace, Disease Process, Safety Issues Teaching Recipient: Patient Teaching Methods: Demonstration, Discussion Response to Teaching: Verbalize Understanding, Return Demonstration, Reinforcement Needed Time/GCodes Time In: 1330 Time Out: 1400 Total Billed Treatment Time: 30 Total Billed Treatment 1,GT15m,FA15m KOURTNEY JOHNSON PRACTICE OFFICE ASSOCIATE Oct 26, 2019 14:10
[2019-10-26 18:00] VITALS: BP 97/56
--- NOTE | 2019-10-26 19:18 | NUR ---
bedside report received from J LUIS STEINER, assume care of pt
[2019-10-26 20:40] VITALS: BP 113/67
[2019-10-26] MEDS: FENOFIBRATE 134 MG (LOFIBRA) CAPSULE PO SCH (20:49)
[2019-10-26] MEDS: PRIMIDONE 50 MG TAB (MYSOLINE) PO SCH (20:50)
[2019-10-26] MEDS: DONEPEZIL 10 MG (ARICEPT) TAB PO SCH (20:50)
[2019-10-26] MEDS: ISOSORBIDE MONONITRATE 30 MG (IMDUR) TAB PO SCH (20:50)
[2019-10-26] MEDS: FLUTICASONE NASAL SPRAY (FLONASE) 16 GM BTL NS SCH (20:52)
[2019-10-26] MEDS: traZODone 100 MG (DESYREL) TAB PO SCH (20:52)
--- NOTE | 2019-10-26 20:53 | NUR ---
pt took Colace but refused Senokot & miralax, c/o back pain level 5/10 on numeric scale, Lortab 7.5mg given
--- NOTE | 2019-10-26 21:10 | NUR ---
pt ambulated zhu with this nurse.
--- NOTE | 2019-10-26 21:45 | NUR ---
resting quietly in bed, pain level 0/10 on numeric scale
[2019-10-27] MEDS: HYDROcodone/APAP 7.5 MG/325 MG (LORTAB, LORCET PLUS) TABLET PO PRN ×4 (03:53→21:12)
--- NOTE | 2019-10-27 03:53 | NUR ---
c/o back pain level 5/10 on numeric scale, Lortab 7.5mg 1 tab given
--- NOTE | 2019-10-27 04:30 | NUR ---
resting quietly in bed pain level 0/10 on CNPI scale
[2019-10-27 05:37] VITALS: BP 142/83
--- NOTE | 2019-10-27 06:12 | PM&R Progress Note ---
Subjective HPI/CC On Admission Date Seen by Provider: Oct 27, 2019 Time Seen by Provider: 09:15 Subjective/Events-last exam Pain is doing well, he just wants the Hydrocodone one tab every four hours as needed and he doesn't want the Percocet when he goes home 1+ edema, refuses erika hose Bowels are moving very well DC is planned for tomorrow on home health Conferred with RN Reviewed therapy notes Checked meds and labs Review of Systems General: Fatigue, Malaise Musculoskeletal: back pain Neurological: Weakness Objective Exam Vital Signs Vital Signs Date Time Temp Pulse Resp B/P (MAP) Pulse Ox O2 Delivery O2 Flow Rate FiO2 10/27/19 17:08 36.9 57 18 146/76 (99) 95 Room Air Capillary Refill : Less Than 3 SecondsLess Than 3 Seconds General Appearance: No Apparent Distress, WD/WN, Chronically ill, Obese HEENT: PERRL/EOMI, Normal ENT Inspection, Pharynx Normal Neck: Full Range of Motion, Normal Inspection, Non Tender, Supple, Carotid Bruit Respiratory: Chest Non Tender, Lungs Clear, Normal Breath Sounds, No Accessory Muscle Use, No Respiratory Distress Cardiovascular: Regular Rate, Rhythm, No Edema, No Gallop, No JVD, No Murmur, Normal Peripheral Pulses Gastrointestinal: Normal Bowel Sounds, No Organomegaly, No Pulsatile Mass, Non Tender, Soft Back: Decreased Range of Motion, Muscle Spasm, Vertebral Tenderness Extremity: Normal Capillary Refill, Normal Inspection, Normal Range of Motion, Non Tender, No Calf Tenderness, No Pedal Edema Neurologic/Psychiatric: Alert, Oriented x3, No Motor/Sensory Deficits, Normal Mood/Affect, shale processing technician II-XII Norm as Tested, Abnormal Gait, Depressed Affect, Disoriented (poor recall), Motor Weakness (legs 4/5) Skin: Normal Color, Warm/Dry Lymphatic: No Adenopathy Results/Procedures Lab Patient resulted labs reviewed. FIM Transfers Therapy Code Descriptions/Definitions Functional [place] Measure: 0=Not Assessed/NA 4=Minimal Assistance 1=Total Assistance 5=Supervision or Setup 2=Maximal Assistance 6=Modified [place] 3=Moderate Assistance 7=Complete IndependenceSCALE: Activities may be completed with or without assistive devices. 0-Hbzhildwgv-cpwnmqh completes the activity by him/herself with no assistance from a helper. 5-Set-up or Clean-up Assistance-helper sets up or cleans up; patient completes activity. [place] assists only prior to or following the activity. 4-Supervision or Touching Assistance-helper provides verbal cues and/or touching/steadying and/or contact guard assistance as patient completes activity. Assistance may be provided throughout the activity or intermittently. 3-Partial/Moderate Assistance-helper does LESS THAN HALF the effort. [place] lifts, holds or supports trunk or limbs, but provides less than half the effort. 2-Substantial/Maximal Assistance-helper does MORE THAN HALF the effort. [place] lifts or holds trunk or limbs and provides more than half the effort. 1-Hmrfavgiz-xyekqm does ALL the effort. Patient does none of the effort to co mplete the activity. Or, the assistance of 2 or more helpers is required for the patient to complete the activity. If activity was not attempted, code reason: 7-Patient Refused. 9-Not Applicable-not attempted and the patient did not perform the activity before the current illness, exacerbation or injury. 10-Not Attempted due to Environmental Limitations-(lack of equipment, weather restraints, etc.). 88-Not Attempted due to Medical Conditions or Safety Concerns. Roll Left to Right (QC): 6 Sit to Lying (QC): 6 Sit to Stand (QC): 6 Chair/Tsw-zt-Keaor Xfer(QC): 6 Car Transfer (QC): 4 Gait Training Does the Patient Walk?: Yes Distance: 400'x2 Walk 10 feet (QC): 5 Walk 50 ft with 2 Turns(QC): 5 Walk 150 ft (QC): 5 Walking 10ft/uneven surface-QC: 4 Gait Persons Needed: 1 Gait Assistive Device: Walker 4 Wheeled Wheelchair Training Does the Pt Use a Wheelchair?: No Wheel 50 ft with 2 turns (QC): 9 Wheel 150 ft (QC): 9 Type of Wheelchair: N/A Stair Training #of Steps: 1 1 Step (curb) (QC): 4 4 Steps (QC): 88 12 Steps (QC): 88 Balance Picking up an Object (QC): 88 ADL-Treatment Eating (QC): 6 (Reported by pt.) Oral Hygiene (QC): 5 (Set up assistance) Shower/Bathe Self (QC): 4 Upper Body Dressing (QC): 3 (Min assist) Lower Body Dressing (QC): 3 On/Off Footwear (QC): 4 Toileting Hygiene (QC): 4 Toilet Transfer (QC): 4 Assessment/Plan Assessment and Plan Assess & Plan/Chief Complaint Assessment: Status post lumbar stenosis surgery POD # 7 Myasthenia gravis Slow recovery KWAN on CPAP Obesity GERD Hypertension Hyperlipidemia CAD Previous CABG 3 vessels Severe pain Plan: Inpatient rehab protocol Pain control Home meds Fall risk Bowel regimen Monitor closely No Lovenox or aspirin for 7 days Increase pain medication Reconcile home medication exactly to his request Discharge on Thursday coinciding with his children leaving [place] to [place] to be able to see them Discharge tomorrow 10/28/2019 on home health (1) Lumbar stenosis (2) Myasthenia gravis (3) KWAN on CPAP (4) CAD (coronary artery disease) (5) S/P CABG x 3 (6) Hypertension (7) Hyperlipemia (8) Obesity (9) GERD with esophagitis (10) Dementia (11) History of penile implant (12) Renal lithiasis MICHEL LOPEZ DO Oct 27, 2019 06:12
[2019-10-27 08:00] VITALS: BP 100/59
--- NOTE | 2019-10-27 08:00 | NUR ---
RATES LOWER BACK/UPPER LEG PAIN A "5" AT REST AND "8" WITH MOVEMENT. FAIRLY GOOD PAIN CONTROL WITH LORTAB. STATES FEELS READY FOR DISCHARGE TOMORROW.
[2019-10-27] MEDS: GABAPENTIN 600 MG (NEURONTIN) TAB PO SCH ×3 (08:06→20:07)
[2019-10-27] MEDS: PANTOPRAZOLE 40 MG (PROTONIX) TAB PO SCH (08:06)
[2019-10-27] MEDS: MULTIVIT W/MINERALS TAB (THERAGRAN M) PO SCH (08:06)
--- NOTE | 2019-10-27 08:54 | Physical Therapy Daily Note ---
PT Daily Note-Current Subjective Patient in bed pre tx, agrees to PT, has 7/10 pain, nurse is in room and gives him pain meds. Appearance Patient in recliner post tx with nurse call, phone, tray, all needs met. Mental Status Patient Orientation: Normal For Age back brace Transfers SCALE: Activities may be completed with or without assistive devices. 0-Iovyserqsm-lnqqjgt completes the activity by him/herself with no assistance from a helper. 5-Set-up or Clean-up Assistance-helper sets up or cleans up; patient completes activity. [place] assists only prior to or following the activity. 4-Supervision or Touching Assistance-helper provides verbal cues and/or touching/steadying and/or contact guard assistance as patient completes activity. Assistance may be provided throughout the activity or intermittently. 3-Partial/Moderate Assistance-helper does LESS THAN HALF the effort. [place] lifts, holds or supports trunk or limbs, but provides less than half the effort. 2-Substantial/Maximal Assistance-helper does MORE THAN HALF the effort. [place] lifts or holds trunk or limbs and provides more than half the effort. 3-Zsivbvhjr-dasyni does ALL the effort. Patient does none of the effort to complete the activity. Or, the assistance of 2 or more helpers is required for the patient to complete the activity. If activity was not attempted, code reason: 7-Patient Refused. 9-Not Applicable-not attempted and the patient did not perform the activity before the current illness, exacerbation or injury. 10-Not Attempted due to Environmental Limitations-(lack of equipment, weather restraints, etc.). 88-Not Attempted due to Medical Conditions or Safety Concerns. Roll Left & Right (QC): 6 Sit to Lying (QC): 6 Lying to Sitting/Side of Bed(Q: 6 Sit to Stand (QC): 6 Chair/Jnm-su-Lrmim Xfer(QC): 6 Toilet Transfer (QC): 6 Car Transfer (QC): 6 Patient performs bed mobility with independence, supine <-> sit with independence, sit <-> stand with independence, transfers with independence, independent with car transfer. Patient has some difficulty with supine <-> sit but can do it without assist. Gait Training Distance: 300'x2 Walk 10 feet (QC): 6 Walk 50 ft with 2 Turns(QC): 6 Walk 150 ft (QC): 6 Walking 10ft/uneven surface-QC: 6 Gait Assistive Device: Walker 4 Wheeled Patient can ambulate 300' with a 4-wheeled walker with independence (including 50' with at least 2 turns of 90 degrees and 10' over an uneven surface). Patient has fair speed, good step through, steady, but occasionally antalgic. Wheelchair Training Does the Pt Use a Wheelchair?: No Stair Training Stair Training: Handrails/: 2 handrails #of Steps: 12 1 Step (curb) (QC): 4 4 Steps (QC): 4 12 Steps (QC): 4 Stairs: Pattern: Step to Patient can go up and down 12 steps using 2 handrails with SBA. Balance Picking up an Object (QC): 88 (no bending over) Exercises Seated Therapy Exercises: Hip abd/add (with pillow and RTB) Standing: Hip Abduction, Hamstring curls, Heel/toe raises, Mini squats Standing Reps: 15 LAQ alternating for 5 min with 2# ankle weights Treatments bed mobility and transfers, ambulation, functional strengthening, stair training Assessment Current Status: Fair Progress improving functional mobility, patient is going home tomorrow PT Short Term Goals Short Term Goals Time Frame: Oct 31, 2019 Roll Left & Right: 6 Sit to lyin Lying to sitting on side of be: 6 Sit to stand: 5 Chair/mwx-be-ftlof transfer: 5 Walk 10 feet: 5 Walk 50 feet with two turns: 5 Walk 150 feet: 5 PT [facility] Goals Assisted Goals PT Assisted Goals Time Frame: Nov 14, 2019 Roll Left & Right (QC): 6 Sit to Lying (QC): 6 Lying-Sitting on Side/Bed(QC): 6 Sit to Stand (QC): 6 Chair/Pna-dc-Eaetn Xfer(QC): 6 Toilet Transfer (QC): 6 Car Transfer (QC): 6 Does the Patient Walk: Yes Walk 10 feet (QC): 6 Walk 50ft with 2 Turns (QC): 6 Walk 150 ft (QC): 6 Walking 10ft on Uneven Surface: 6 1 Step (curb) (QC): 4 4 Steps (QC): 4 12 Steps (QC): 88 Picking up an Object (QC): 88 Does the Pt use WC or Scooter?: No Wheel 50 feet with 2 turns (QC: 9 Wheel 150 feet: 9 PT Plan Problem List Problem List: Activity Tolerance, Functional Strength, Safety, Balance, Gait, Transfer, Bed Mobility, ROM Treatment/Plan Treatment Plan: Continue Plan of Care Treatment Plan: Bed Mobility, Education, Functional Activity [place], Functional Strength, Group Therapy, Gait, Safety, Therapeutic Exercise, Transfers Treatment Duration: Nov 14, 2019 Frequency: At least 5 of 7 days/Wk (IRF) Estimated Hrs Per Day: 1.5 hours per day Patient and/or Family Agrees t: Yes Safety Risks/Education Patient Education: Gait Training, Transfer Techniques, Steps, Correct Positioning, Reviewed Don/Doff Brace, Safety Issues Teaching Recipient: Patient Teaching Methods: Demonstration, Discussion Response to Teaching: Reinforcement Needed Time/GCodes Time In: 0800 Time Out: 0900 Total Billed Treatment Time: 60 Total Billed Treatment 1 visit EX 25' FA 35' JOHNSON CRUZ PT Oct 27, 2019 08:54
[2019-10-27] MEDS: SENNA W/DOCUSATE (SENOKOT S) TABLET PO SCH ×2 (08:56→20:09)
[2019-10-27] MEDS: VITAMIN D3 125 MCG (5,000 UNITS) CAPSULE PO SCH (08:56)
[2019-10-27] MEDS: ASCORBIC ACID (VIT C) 500 MG TABLET PO SCH (08:56)
[2019-10-27] MEDS: LORATADINE (CLARITIN) 10 MG TAB PO SCH (08:56)
[2019-10-27] MEDS: polyethylene glycoL POWDER 17 GM (MIRALAX) PACK PO SCH ×2 (08:57→20:12)
[2019-10-27] MEDS: DOCUSATE SODIUM 100 MG (COLACE) CAP PO SCH ×2 (08:57→20:09)
[2019-10-27] MEDS: PYRIDOSTIGMINE 60 MG TABLET PO SCH ×3 (08:58→20:11)
[2019-10-27 09:00] VITALS: BP 122/70
[2019-10-27] MEDS: MYCOPHENOLATE 1000 MG PO SCH ×2 (09:00→15:54)
[2019-10-27] MEDS: LOSARTAN 100 MG (COZAAR) TABLET PO SCH (09:04)
[2019-10-27] MEDS: ATENOLOL 50 MG (TENORMIN) TAB PO SCH (09:04)
--- NOTE | 2019-10-27 11:24 | Occupational Ther Daily Note ---
OT Current Status-Daily Note Subjective Pt. up in recliner when OT entered the room. Pt. excited to see OT and requested a shower. Pt. reported pain, but did not rate pain in lower back and stated that it was not time for pain medication. Mental Status/Objective Patient Orientation: Person, Place, Time, Situation ADL-Treatment Therapy Code Descriptions/Definitions Functional [place] Measure: 0=Not Assessed/NA 4=Minimal Assistance 1=Total Assistance 5=Supervision or Setup 2=Maximal Assistance 6=Modified [place] 3=Moderate Assistance 7=Complete IndependenceSCALE: Activities may be completed with or without assistive devices. 0-Jbrmiirdlc-zsxjoqq completes the activity by him/herself with no assistance from a helper. 5-Set-up or Clean-up Assistance-helper sets up or cleans up; patient completes activity. [place] assists only prior to or following the activity. 4-Supervision or Touching Assistance-helper provides verbal cues and/or touching/steadying and/or contact guard assistance as patient completes activity. Assistance may be provided throughout the activity or intermittently. 3-Partial/Moderate Assistance-helper does LESS THAN HALF the effort. [place] lifts, holds or supports trunk or limbs, but provides less than half the effort. 2-Substantial/Maximal Assistance-helper does MORE THAN HALF the effort. [place] lifts or holds trunk or limbs and provides more than half the effort. 8-Kqvejphyo-pwctvy does ALL the effort. Patient does none of the effort to complete the activity. Or, the assistance of 2 or more helpers is required for the patient to complete the activity. If activity was not attempted, code reason: 7-Patient Refused. 9-Not Applicable-not attempted and the patient did not perform the activity before the current illness, exacerbation or injury. 10-Not Attempted due to Environmental Limitations-(lack of equipment, weather restraints, etc.). 88-Not Attempted due to Medical Conditions or Safety Concerns. Eating (QC): 6 Oral Hygiene (QC): 6 Shower/Bathe Self (QC): 6 Upper Body Dressing (QC): 3 (Min A with donning shirt. Pt. able to don brace.) Lower Body Dressing (QC): 6 On/Off Footwear: 3 (Mod assist overall with footwear. Min assist with socks required, as well as mod assist with donning shoes.) Toileting Hygiene (QC): 6 Toilet Transfer (QC): 6 Pt. requested a shower this am. Pt. ambulated from recliner to bathroom using 4 ww independently. Pt. used restroom and completed toilet hygiene independently. Pt transferred to shower chair independently. Pt. doffed socks, pants, and underwear independently using dressing stick and concession attendant. Pt. doffed shirt independently. Pt. bathed and dried self independently. Pt. donned underwear and pants independently using dressing stick and concession attendant. Pt. required min A for adjusting socks after donning with sock aid and dressing stick. Pt. required min A for pulling shirt past shoulders. Pt. ambulated to sink and was independent in oral hygiene and grooming while seated. Pt. ambulated to closet to select shoes for walking. Pt. used 4 ww for all transfers. Pt doffed socks independently with dressing stick. Pt required mod A for donning shoes using the shoe horn for the first time. Pt. ambulated to therapy gym independently with walker. Pt participated in 6 minutes of arm bike at min resistance to increase ROM and overall endurance in B UE for functional activity tolerance. Pt. ambulated back to room with walker and transferred to recliner independently. All needs met. Education OT Patient Education: Correct positioning, Energy conservation, Modified ADL techniques, Progress toward Goal/Update tx plan, Purpose of tx/functional activities, Reviewed precautions, Rehab process, Safety issues, Transfer techniques, Use of adapted equipment Teaching Recipient: Patient Teaching Methods: Demonstration, Discussion Response to Teaching: Verbalize Understanding, Return Demonstration OT Short Term Goals Short Term Goals Time Frame: Oct 31, 2019 Eatin Oral hygiene: 6 Toileting hygiene: 5 Shower/bathe self: 4 Upper body dressin Lower body dressin Putting on/taking off footwear: 4 OT [facility] Goals [facility] Goals Time Frame: Nov 07, 2019 Eating (QC): 6 Oral Hygiene (QC): 6 Toileting Hygiene (QC): 6 Shower/Bathe Self (QC): 5 Upper Body Dressing (QC): 6 Lower Body Dressing (QC): 6 On/Off Footwear (QC): 6 Additional Goals: 1-Demonstrate ADL Tasks, 2-Verbalize Understanding, 3- ImproveStrength/[place] 1=Demonstrate adherence to instructed precautions during ADL tasks. 2=Patient will verbalize/demonstrate understanding of assistive devices/modifications for ADL. 3=Patient will improve strength/tolerance for activity to enable patient to perform ADL's. OT Education/Plan Problem List/Assessment Assessment: Decreased Activ Tolerance, Decreased UE Strength, Impaired Self- Care Skills Discharge Recommendations Plan/Recommendations: Continue POC Therapy Discharge Recommendati: Home & Family Equpiment Recommendations-D/C: Hip Kit Comment Pt. reported that his bought a hip kit yesterday Treatment Plan/Plan of Care Treatment,Training & Education: Yes Patient would benefit from OT for education, treatment and training to promote independence in ADL's, mobility, safety and/or upper extremity function for ADL's. Plan of Care: ADL Retraining, Functional Mobility, Group Exercise/Act as Ind, UE Funct Exercise/Act Treatment Duration: Nov 07, 2019 Frequency: At least 5 of 7 days/Wk (IRF) Estimated Hrs Per Day: 1.5 hours per day Agreement: Yes Rehab Potential: Good Time/GCodes Start Time: 09:45 Stop Time: 11:15 Total Time Billed (hr/min): 90 Billed Treatment Time 1, ADL 4 (60 minutes), FA (15 minutes), EX (15 minutes) INDER BARROW OT Oct 27, 2019 11:24
--- NOTE | 2019-10-27 12:30 | NUR ---
TIRED AFTER BEING UP ALL DAY. MEDICATED WITH LORTAB AND NOW SLEEPING IN BED WITH CPAP ON.
--- NOTE | 2019-10-27 12:42 | NUR ---
CM/SS PATIENT CARE CONFERENCE and DISCHARGE PLANNING Reviewed conference Summary with patient and his spouse yesterday afternoon. They are both in agreement to discharge Monday, October 28, 2019. Spouse will molded goods spot picker at 0930. C: Referral completed with patient/spouse choice agency, [facility] for PT. [facility] confirms acceptance to provide, first available start date is Thursday10/31/19. Staff and/or adjusto writer operator to fax final discharge orders and instructions to agency once completed. DME: Patient has 4WW, spouse has purchased shower chair and hip kit for home use. No other needs identified.
[2019-10-27] MEDS ORDERED: HYDR-34 PO (13:08)
--- NOTE | 2019-10-27 13:10 | D/C HH Face to Face Order ---
D/C HH Face to Face Orders Reconcile Patient Problems Problems Reviewed?: Yes Instructions for Patient Integrity [facility] Patient Instructions/FollowUp: HH to start on 10/31/19 Physician to follow Patient: [place] Discharge Diet for Home: No Restrictions Patient Problems: Back surgery HTN MG Goals for Patient: [place] Patient Data-Allergies,Ht & Wt Patient Allergies: Coded Allergies: codeine (Verified Allergy, Unknown, 10/23/19) Home Health Need/Face to Face Date of Face to Face: Oct 27, 2019 Clinical Findings: Generalized weakness and fatigue, Instability, Muscle weakness, Pain with ambulation, Unsteady gait I have seen Pt piiw-qg-bckz: Yes Discharged To: Home Diagnosis/Conditions: Back surgery HTN MG Patient is Homebound due to: [place] fall risk due to instabilty, Muscle weakness, Pain w/ambulation Homebound Status Due to the above stated illness, injury or surgical procedure (medical condition or diagnosis) and associated clinical findings, the patient is homebo und because of his/her inability to leave home except with aid of a supportive device and/or person AND leaving the home requires a considerable and taxing effort or is medically contraindicated. Pt req the following assistanc: Walker Home Health Nursing Orders Home Health Services Order: Physical Therapy-Evaluate & Treat Certify Stmt I certify that this patient is under my care and that I, a nurse practitioner or a physician; a special education assistant working with me, had a face to face encounter that - meets the physician face to face encounter requirements with this patient as dated. MICHEL LOPEZ DO Oct 27, 2019 13:10
--- NOTE | 2019-10-27 13:59 | Physical Therapy Daily Note ---
PT Daily Note-Current Subjective Patient in bed pre tx, agrees to PT,has 7/10 back pain, states he had a pain pill recently. Appearance Patient in bed post tx with nurse call, phone, tray, all needs met. Mental Status Patient Orientation: Normal For Age back brace Transfers SCALE: Activities may be completed with or without assistive devices. 7-Njtfzyftjd-ugiyvln completes the activity by him/herself with no assistance from a helper. 5-Set-up or Clean-up Assistance-helper sets up or cleans up; patient completes activity. [place] assists only prior to or following the activity. 4-Supervision or Touching Assistance-helper provides verbal cues and/or touching/steadying and/or contact guard assistance as patient completes activity. Assistance may be provided throughout the activity or intermittently. 3-Partial/Moderate Assistance-helper does LESS THAN HALF the effort. [place] lifts, holds or supports trunk or limbs, but provides less than half the effort. 2-Substantial/Maximal Assistance-helper does MORE THAN HALF the effort. [place] lifts or holds trunk or limbs and provides more than half the effort. 5-Xqmmmtdxx-iuaemq does ALL the effort. Patient does none of the effort to complete the activity. Or, the assistance of 2 or more helpers is required for the patient to complete the activity. If activity was not attempted, code reason: 7-Patient Refused. 9-Not Applicable-not attempted and the patient did not perform the activity before the current illness, exacerbation or injury. 10-Not Attempted due to Environmental Limitations-(lack of equipment, weather restraints, etc.). 88-Not Attempted due to Medical Conditions or Safety Concerns. Roll Left & Right (QC): 6 Sit to Lying (QC): 6 Lying to Sitting/Side of Bed(Q: 6 Sit to Stand (QC): 6 Chair/Fhn-ja-Noffk Xfer(QC): 6 Toilet Transfer (QC): 6 Patient uses the toilet once during therapy with independence. Gait Training Distance: 500'x2 Walk 10 feet (QC): 6 Walk 50 ft with 2 Turns(QC): 6 Walk 150 ft (QC): 6 Gait Assistive Device: Walker 4 Wheeled slow but steady ambulation, rest break between Treatments toileting, bed mobility and transfers, ambulation Assessment Current Status: Fair Progress improving endurance PT Short Term Goals Short Term Goals Time Frame: Oct 31, 2019 Roll Left & Right: 6 Sit to lyin Lying to sitting on side of be: 6 Sit to stand: 5 Chair/xds-xd-zzabn transfer: 5 Walk 10 feet: 5 Walk 50 feet with two turns: 5 Walk 150 feet: 5 PT Senior Living Goals [place] Gauger Goals PT Senior Living Goals Time Frame: Nov 14, 2019 Roll Left & Right (QC): 6 Sit to Lying (QC): 6 Lying-Sitting on Side/Bed(QC): 6 Sit to Stand (QC): 6 Chair/Jxt-pr-Dyccc Xfer(QC): 6 Toilet Transfer (QC): 6 Car Transfer (QC): 6 Does the Patient Walk: Yes Walk 10 feet (QC): 6 Walk 50ft with 2 Turns (QC): 6 Walk 150 ft (QC): 6 Walking 10ft on Uneven Surface: 6 1 Step (curb) (QC): 4 4 Steps (QC): 4 12 Steps (QC): 88 Picking up an Object (QC): 88 Does the Pt use WC or Scooter?: No Wheel 50 feet with 2 turns (QC: 9 Wheel 150 feet: 9 PT Plan Problem List Problem List: Activity Tolerance, Functional Strength, Safety, Balance, Gait, Transfer Treatment/Plan Treatment Plan: Continue Plan of Care Treatment Plan: Bed Mobility, Education, Functional Activity [place], Functional Strength, Group Therapy, Gait, Safety, Therapeutic Exercise, Transfers Treatment Duration: Nov 14, 2019 Frequency: At least 5 of 7 days/Wk (IRF) Estimated Hrs Per Day: 1.5 hours per day Patient and/or Family Agrees t: Yes Safety Risks/Education Patient Education: Gait Training, Transfer Techniques, Correct Positioning, Reviewed Don/Doff Brace, Safety Issues Teaching Recipient: Patient Teaching Methods: Demonstration, Discussion Response to Teaching: Reinforcement Needed Time/GCodes Time In: 1330 Time Out: 1400 Total Billed Treatment Time: 30 Total Billed Treatment 1 visit FA 10' GT 20' JOHNSON CRUZ PT Oct 27, 2019 13:59
[2019-10-27 17:08] VITALS: BP 146/76
[2019-10-27] MEDS: FLUTICASONE NASAL SPRAY (FLONASE) 16 GM BTL NS SCH (20:08)
[2019-10-27] MEDS: FENOFIBRATE 134 MG (LOFIBRA) CAPSULE PO SCH (20:09)
[2019-10-27] MEDS: ISOSORBIDE MONONITRATE 30 MG (IMDUR) TAB PO SCH (20:09)
[2019-10-27] MEDS: DONEPEZIL 10 MG (ARICEPT) TAB PO SCH (20:10)
[2019-10-27] MEDS: PRIMIDONE 50 MG TAB (MYSOLINE) PO SCH (20:10)
[2019-10-27] MEDS: traZODone 100 MG (DESYREL) TAB PO SCH (20:12)
[2019-10-28 05:29] VITALS: BP 135/62
[2019-10-28] MEDS: HYDROcodone/APAP 7.5 MG/325 MG (LORTAB, LORCET PLUS) TABLET PO PRN (07:22)
--- NOTE | 2019-10-28 07:42 | Discharge Summary ---
Diagnosis/Chief Complaint Date of Admission Oct 23, 2019 at 15:12 Date of Discharge Discharge Date: Oct 28, 2019 Discharge Diagnosis Assessment: Status post lumbar stenosis surgery POD # 8 Myasthenia gravis Slow recovery KWAN on CPAP Obesity GERD Hypertension Hyperlipidemia CAD Previous CABG 3 vessels Severe pain Plan: Inpatient rehab protocol Pain control Home meds Fall risk Bowel regimen Monitor closely No Lovenox or aspirin for 7 days Increase pain medication Reconcile home medication exactly to his request Discharge today coinciding with his children leaving [facility] to be able to see them Discharge today10/28/2019 on home health Discharge Summary Discharge Physical Examination Allergies: Coded Allergies: codeine (Verified Allergy, Unknown, 10/23/19) Vitals & I&Os Vital Signs Date Time Temp Pulse Resp B/P (MAP) Pulse Ox O2 Delivery O2 Flow Rate FiO2 10/28/19 10:32 36.2 76 20 121/71 94 Room Air General Appearance: Alert, Oriented X3 Respiratory: Normal Air Movement Cardiovascular: Regular Rate Neuro: Strength at 5/ X4 Ext Hospital Course Was the Problem List Reviewed?: Yes Patient had an uncomplicated week stay at inpatient rehabilitation after uncomplicated lumbar stenosis surgery by Dr. Colón at [place]. Due to patient's comorbidities and myasthenia gravis and increase fall risk he was transferred to inpatient rehabilitation for close monitoring, pain control and structured physical therapy in order to continue on an uneventful recovery following extensive lumbar spine surgery. His bowels remain normal on his home medications were restarted at his preference and overall he was able to participate as required and he was deemed stable for discharge on home physical therapy which will be started on Thursday. Labs (last 24 hrs) Laboratory Tests 10/24/19 05:11: White Blood Count 8.4, Red Blood Count 3.92L, Hemoglobin 11.1L, Hematocrit 34L, Mean Corpuscular Volume 87, Mean Corpuscular Hemoglobin 28, Mean Corpuscular Hemoglobin Concent 33, Red Cell Distribution Width 13.1, Platelet Count 191, Mean Platelet Volume 9.3, Neutrophils (%) (Auto) 69, Lymphocytes (%) (Auto) 15, Monocytes (%) (Auto) 13H, Eosinophils (%) (Auto) 3, Basophils (%) (Auto) 1, Neutrophils # (Auto) 5.9, Lymphocytes # (Auto) 1.3, Monocytes # (Auto) 1.1H, Eosinophils # (Auto) 0.2, Basophils # (Auto) 0.0, Sodium Level 136, Potassium Level 3.9, Chloride Level 101, Carbon Dioxide Level 26, Anion Gap 9, Blood Urea Nitrogen 14, Creatinine 1.03, Estimat Glomerular Filtration Rate > 60, BUN/Cr eatinine Ratio 14, Glucose Level 125H, Calcium Level 8.7, Corrected Calcium 9.0, Total Bilirubin 0.3, Aspartate Amino Transf (AST/SGOT) 20, Alanine Aminotransferase (ALT/SGPT) 16, Alkaline Phosphatase 43, Total Protein 6.3L, Albumin 3.6 Pending Labs Laboratory Tests 10/24/19 05:11: White Blood Count 8.4, Red Blood Count 3.92, Hemoglobin 11.1, Hematocrit 34, Mean Corpuscular Volume 87, Mean Corpuscular Hemoglobin 28, Mean Corpuscular Hemoglobin Concent 33, Red Cell Distribution Width 13.1, Platelet Count 191, Mean Platelet Volume 9.3, Neutrophils (%) (Auto) 69, Lymphocytes (%) (Auto) 15, Monocytes (%) (Auto) 13, Eosinophils (%) (Auto) 3, Basophils (%) (Auto) 1, Neutrophils # (Auto) 5.9, Lymphocytes # (Auto) 1.3, Monocytes # (Auto) 1.1, Eosinophils # (Auto) 0.2, Basophils # (Auto) 0.0, Sodium Level 136, Potassium Level 3.9, Chloride Level 101, Carbon Dioxide Level 26, Anion Gap 9, Blood Urea Nitrogen 14, Creatinine 1.03, Estimat Glomerular Filtration Rate > 60, BUN/Creatinine Ratio 14, Glucose Level 125, Calcium Level 8.7, Corrected Calcium 9.0, Total Bilirubin 0.3, Aspartate Amino Transf (AST/SGOT) 20, Alanine Aminotransferase (ALT/SGPT) 16, Alkaline Phosphatase 43, Total Protein 6.3, Albumin 3.6 Discharge Home Medications: Active Scripts Active HYDROcodone/APAP 7.5/325 TAB (Acetaminophen/Hydrocodone Bitart) 1 Ea Tablet 1 Ea PO Q4H PRN Reported Mycophenolate Mofetil 500 Mg Tablet 1,000 Mg PO BID TAKES 2 (500MG) TABS TWICE DAILY Donepezil HCl 10 Mg Tablet 20 Mg PO HS TAKES 2 (10MG) TAB Fish Oil 1,000 mg Softgel (Paden-3S/Dha/Epa/Fish Oil) 1 Each Capsule 2 Each PO BID Nystop (Nystatin) 60 Gm Powder 1 Applic TOP HS Trazodone HCl 100 Mg Tablet 100 Mg PO HS Zyrtec (Cetirizine HCl) 10 Mg Tablet 10 Mg PO DAILY Vitamin D3 (Cholecalciferol (Vitamin D3)) 50 Mcg Capsule 50 Mcg PO DAILY Vitamin C (Ascorbate Calcium) 500 Mg Tablet 500 Mg PO DAILY Multivitamin 1 Each Tablet 1 Each PO Pantoprazole Sodium 40 Mg Tablet.dr 40 Mg PO DAILY Atenolol 50 Mg Tablet 50 Mg PO DAILY Losartan Potassium 100 Mg Tablet 100 Mg PO DAILY Fenofibrate 160 Mg Tablet 160 Mg PO DAILY Isosorbide Mononitrate ER (Isosorbide Mononitrate) 30 Mg Tab.er.24h 30 Mg PO HS Mysoline (Primidone) 50 Mg Tablet 100 Mg PO HS Fluticasone Propionate 16 Gm Oral.susp 1 Oral NSEACH HS Pyridostigmine [place] 60 Mg Tablet 90 Mg PO TID TAKES 1 & (60MG) TABS TO EQUAL 90MG THREE TIMES DAILY Gabapentin 600 Mg Tablet 1,200 Mg PO TID Instructions to patient/family Please see electronic discharge instructions given to patient. Diagnosis/Problems Diagnosis/Problems (1) Lumbar stenosis (2) Myasthenia gravis (3) KWAN on CPAP (4) CAD (coronary artery disease) (5) S/P CABG x 3 (6) Hypertension (7) Hyperlipemia (8) Obesity (9) GERD with esophagitis (10) Dementia (11) History of penile implant (12) Renal lithiasis Clinical Quality Measures DVT/VTE Risk/Contraindication: Risk Factor Score Per Nursin RFS Level Per Nursing on Admit: 4+=Very High Contraindications-Pharm: Other *list below* Other: spine surgery precludes anticoagulation due to increased risk for spinal hematoma and paralysis MICHEL LOPEZ DO Oct 28, 2019 07:42
[2019-10-28] MEDS: GABAPENTIN 600 MG (NEURONTIN) TAB PO SCH (08:11)
[2019-10-28] MEDS: PANTOPRAZOLE 40 MG (PROTONIX) TAB PO SCH (08:11)
[2019-10-28] MEDS: VITAMIN D3 125 MCG (5,000 UNITS) CAPSULE PO SCH (08:11)
[2019-10-28] MEDS: LORATADINE (CLARITIN) 10 MG TAB PO SCH (08:11)
[2019-10-28] MEDS: LOSARTAN 100 MG (COZAAR) TABLET PO SCH (08:11)
[2019-10-28] MEDS: MULTIVIT W/MINERALS TAB (THERAGRAN M) PO SCH (08:11)
[2019-10-28] MEDS: DOCUSATE SODIUM 100 MG (COLACE) CAP PO SCH (08:11)
[2019-10-28] MEDS: ATENOLOL 50 MG (TENORMIN) TAB PO SCH (08:11)
[2019-10-28] MEDS: ASCORBIC ACID (VIT C) 500 MG TABLET PO SCH (08:11)
[2019-10-28] MEDS: PYRIDOSTIGMINE 60 MG TABLET PO SCH (08:12)
[2019-10-28] MEDS: MYCOPHENOLATE 1000 MG PO SCH (08:13)
[2019-10-28] MEDS: SENNA W/DOCUSATE (SENOKOT S) TABLET PO SCH (08:14)
[2019-10-28] MEDS: polyethylene glycoL POWDER 17 GM (MIRALAX) PACK PO SCH (08:14)
[2019-10-28 08:19] VITALS: BP 121/71
--- NOTE | 2019-10-28 09:22 | NUR ---
CM/SS DISCHARGE Patient discharged home as planned. IMM2 presented, reviewed, signed, charted. Patient participated in all discharge planning and is dressed and ready to leave hospital. HHC: Finalized with [facility] for home PT to begin Thursday. Unit RN aware of all plans and finalizing clinical discharge process.
[2019-10-28 10:32] VITALS: BP 121/71
--- NOTE | 2019-10-28 10:55 | Therapy Team Discharge Summary ---
Therapy Discharge Summary Discharge Recommendations Date of Discharge 10/28/2019 Therapy D/C Recommendations: Physical Therapy Home Care Physical Therapy This patient was admitted to ARU post acute hospital stay post surgery due to lumbar stenosis. His PLOF was mod indep with all mobilty and lived with family. Upon admit to this unit, he was mod indep with bed mobility, SB-CGA with transfers and gait as well as with steps. Treatment has focused on functional strength, balance, activity tolerance and mobility to allow him to be mod indep with all transfers and gait. At last visit, he was mod indep with bed mobility and tranfsers, mod indep with gait using a FWW and up/down 12 steps with SBA. He has made excellent progress and has achieved all goals to a satisfactory level. Recommend [facility] PT to follow for continued progression of mobility. DC from ARU this date. Occupational Therapy Decreased Activ Tolerance, Decreased UE Strength, Impaired Self-Care Skills PT Police Radio Dispatcher Goals [facility] Goals PT Police Radio Dispatcher Goals Time Frame: Nov 14, 2019 Roll Left to Right (QC): 6 Sit to Lying (QC): 6 Lying-Sitting on Side/Bed(QC): 6 Sit to Stand (QC): 6 Chair/Tzl-ma-Nltjj Xfer(QC): 6 Car Transfer (QC): 6 Does the Patient Walk: Yes Walk 10 feet (QC): 6 Walk 10ft-Uneven Surface(QC): 6 Walk 50ft with 2 Turns (QC): 6 Walk 150 ft (QC): 6 Does the Pt use WC or Scooter?: No Wheel 50 feet with 2 turns (QC: 9 1 Step (curb) (QC): 4 4 Steps (QC): 4 12 Steps (QC): 88 Picking up an Object (QC): 88 All goals met. OT Police Radio Dispatcher Goals Police Radio Dispatcher Goals Time Frame: Nov 07, 2019 Eating (QC): 6 Oral Hygiene (QC): 6 Shower/Bathe Self (QC): 5 Upper Body Dressing (QC): 6 Lower Body Dressing (QC): 6 On/Off Footwear (QC): 6 Toileting Hygiene (QC): 6 Toilet/Commode Transfer (QC): 6 Additional Goals: 1-Demonstrate ADL Tasks, 2-Verbalize Understanding, 3- ImproveStrength/Libertad 1=Demonstrate adherence to instructed precautions during ADL tasks. 2=Patient will verbalize/demonstrate understanding of assistive devices/modifications for ADL. 3=Patient will improve strength/tolerance for activity to enable patient to perform ADL's. DISHA LFORES PT Oct 28, 2019 10:55
--- NOTE | 2019-10-31 08:29 | Therapy Team Discharge Summary ---
Therapy Discharge Summary Discharge Recommendations Date of Discharge Oct 28, 2019 at 10:30 Therapy D/C Recommendations: Physical Therapy Home Care Occupational Therapy Pt. seen by occupational therapy to increase overall strength and independence. Pt. has met all goals of independence with exception of UE dressing due to requiring min assist for shirt. Pt. has obtained hip kit. All other needs met. No further OT needs at this time. PT Marketing Researcher Goals Marketing Researcher Goals PT Alf Goals Time Frame: Nov 14, 2019 Roll Left to Right (QC): 6 Sit to Lying (QC): 6 Lying-Sitting on Side/Bed(QC): 6 Sit to Stand (QC): 6 Chair/Vce-jx-Vacxu Xfer(QC): 6 Car Transfer (QC): 6 Does the Patient Walk: Yes Walk 10 feet (QC): 6 Walk 10ft-Uneven Surface(QC): 6 Walk 50ft with 2 Turns (QC): 6 Walk 150 ft (QC): 6 Does the Pt use WC or Scooter?: No Wheel 50 feet with 2 turns (QC: 9 1 Step (curb) (QC): 4 4 Steps (QC): 4 12 Steps (QC): 88 Picking up an Object (QC): 88 OT Alf Goals Marketing Researcher Goals Time Frame: Nov 07, 2019 Eating (QC): 6 (met) Oral Hygiene (QC): 6 (met) Shower/Bathe Self (QC): 5 (met) Upper Body Dressing (QC): 6 (not met) Lower Body Dressing (QC): 6 (met) On/Off Footwear (QC): 6 (met) Toileting Hygiene (QC): 6 (met) Toilet/Commode Transfer (QC): 6 (met) Additional Goals: 1-Demonstrate ADL Tasks, 2-Verbalize Understanding, 3- ImproveStrength/Libertad 1=Demonstrate adherence to instructed precautions during ADL tasks. 2=Patient will verbalize/demonstrate understanding of assistive devices/modifications for ADL. 3=Patient will improve strength/tolerance for activity to enable patient to perform ADL's. INDER BARROW OT Oct 31, 2019 08:29
== END 2019-10-28 10:30 | disposition home health service (06) | DRG 57 ==
LOC: EDSTATUS 15:11
PROVIDERS: ADMIT Internal Medicine; ATTEND Internal Medicine
DX: G70.00 Myasthenia gravis without (acute) exacerbation (principal); Z47.89 Encounter for other orthopedic aftercare; G62.9 Polyneuropathy, unspecified; M47.816 Spondylosis without myelopathy or radiculopathy, lumbar region; I25.10 Atherosclerotic heart disease of native coronary artery without angina pectoris; G47.33 Obstructive sleep apnea (adult) (pediatric); F03.90 Unspecified dementia, unspecified severity, without behavioral disturbance, psychotic disturbance, mood disturbance, and anxiety; F32.9 Major depressive disorder, single episode, unspecified; K21.0 Gastro-esophageal reflux disease with esophagitis; I10 Essential (primary) hypertension; E78.5 Hyperlipidemia, unspecified; N20.0 Calculus of kidney; N40.0 Benign prostatic hyperplasia without lower urinary tract symptoms; E66.9 Obesity, unspecified; Z68.38 Body mass index [BMI] 38.0-38.9, adult; R00.1 Bradycardia, unspecified; I25.2 Old myocardial infarction; Z95.1 Presence of aortocoronary bypass graft; Z95.5 Presence of coronary angioplasty implant and graft
CPT/HCPCS: 36415; 80053; 85025